=== PATIENT | male | born 1955 | race African-American/Black ===

== ENCOUNTER 2016-12-03 04:40 | Emergency (ER) | payer MEDICAID ==
[~2016-12-03] VITALS: Ht 177.8 cm; Wt 81.6 kg
[~2016-12-03 04:40] MED LIST: ACULAR5 ML LEFT EYE; ADVAIR 100-501 EACH INH; ALBUTEROL SULF8.5 GM INH; ALBUTEROL2.5 MG/3 M HHN; ATROVENT500 MCG/2. HHN; AZITHROMYCIN250 MG ORAL; CYCLOBENZAPRINE10 MG PO; IPRAT-ALBUT 0.5-3 ML IH; ISENTRESS400 MG ORAL; MONTELUKAST SOD10 MG ORAL; MOTRIN800 MG PO; PREDNISONE20 MG ORAL; QUETIAPINE FUMA25 MG PO; QVAR7.3 G2 IH; TRUVADA1 TAB ORAL; WELLBUTRIN75 MG ORAL; ZITHROMAX250 MG ORAL
[2016-12-03] MEDS ORDERED: TRUVADA 200 MG1 EAC1 ORAL (04:48)
[2016-12-03 04:50] VITALS: BP 132/85
[2016-12-03 05:00] VITALS: BP 135/85
--- NOTE | 2016-12-03 05:08 | Emergency Room Report ---
History of Present Illness General Chief Complaint: Back Pain-No Injury Source: Patient Present Illness HPI Is a 61-year-old male with history of scoliosis and chronic lower back pain. He complaining of increasing lower back pain for the last 3 days. He has numbness and burning sensation to the lower back. No radiation. Denies any incontinence of bowel or urine. No trauma. No fever or chills. Movement made it worse. Pain is 10 out of 10. Allergies: Coded Allergies: CODEINE (Verified Allergy, Mild, Altered Mental Status, 03/04/13) Patient History Past Medical History: see triage record, old chart reviewed, other - scoliosis Past Surgical History: other Pertinent Family History: none Social History: Denies: smoking Immunizations: other Reviewed Nursing Documentation: PMH: Agreed, PSxH: Agreed Nursing Documentation-PMH Hx Asthma: Yes Hx COPD: Yes Review of Systems Eye: Denies: blurred vision, eye pain ENT: Denies: ear pain, nose congestion, throat swelling Respiratory: Denies: cough, shortness of breath Cardiovascular: Denies: chest pain, palpitations Gastrointestinal: Denies: abdominal pain, diarrhea, nausea, vomiting Musculoskeletal: Reports: back pain, Denies: joint pain Skin: Denies: rash Neurological: Denies: headache, numbness Endocrine: Denies: increased thirst, increased urine Hematologic/Lymphatic: Denies: easy bruising All Other Systems: negative except mentioned in HPI Physical Exam Vital Signs Date Time Temp Pulse Resp B/P Pulse Ox O2 Delivery O2 Flow Rate FiO2 12/03/16 04:43 97.3 99 18 132/85 95 Room Air vitals normal Sp02 EP Interpretation: reviewed, normal General Appearance: well appearing, alert, mild distress Head: normocephalic, atraumatic Eyes: bilateral eye EOMI, bilateral eye PERRL ENT: hearing grossly normal, normal pharynx Neck: full range of motion, supple, no meningismus Respiratory: chest non-tender, lungs clear, normal breath sounds Cardiovascular #1: regular rate, rhythm, no murmur Gastrointestinal: normal bowel sounds, non tender, no mass, no organomegaly, no bruit, non-distended Musculoskeletal: gait/station normal, normal range of motion, other - Scoliosis. Diffuse lower back tenderness. No step-off. No anesthesia. Neurologic: alert, oriented x3 Psychiatric: mood/affect normal Skin: warm/dry Medical Decision Making Diagnostic Impression: Primary Impression: Back pain Qualified Codes: M54.5 - Low back pain ER Course Patient presents with exacerbation of chronic back pain. No evidence of cauda equina syndrome, spinal after abscess or neoplastic process. He felt better now. We'll discharge home. CT/MRI/US Diagnostic Results CT/MRI/US Diagnostic Results : Imaging Test Ordered: CT L-spine. Impression read by radiologist. No acute process. Last Vital Signs Date Time Temp Pulse Resp B/P Pulse Ox O2 Delivery O2 Flow Rate FiO2 12/03/16 04:50 97.3 99 18 132/85 95 Room Air Status: improved Disposition: HOME, SELF-CARE Condition: Stable Scripts Hydrocodone/Acetaminophen 7.5-325* (HYDROCODON-ACETAMINOPH 7.5-325*) 1 Each Tablet 1 TAB ORAL Q6H Y for For Pain, #20 TAB 0 Refills Prov: FELA LOMELI M.D. 12/03/16 Patient Instructions: Back Pain, Adult Additional Instructions: Followup with your Dr. in 7 days. Return if symptom worsen. FELA LOMELI M.D. Dec 03, 2016 05:08
[2016-12-03] MEDS ORDERED: HYDROmorphone 1mg/ml Carpuject IM ONE (05:15)
[2016-12-03 06:00] VITALS: BP 124/83
[2016-12-03] MEDS ORDERED: HYDROCODON-ACE1 EA16 ORAL (06:15)
[2016-12-03 06:18] VITALS: BP 124/83
--- NOTE | 2016-12-03 09:50 | Diagnostic Imaging Report ---
Indication: Back pain Technique: Continuous helical transaxial imaging of the lumbar spine was obtained from the lung bases to the pubic symphysis. No IV contrast was administered. Coronal 2-D reformats were also obtained. Study obtained in a Siemens sensation [address] Total Dose length Product (DLP): [address] Dose Index Volume (CTDIvol): 17 mGy Comparison: CT abdomen pelvis 04/28/2009 Findings: There is no evidence of an acute fracture or malalignment. There is moderate disc disease at L2-3 characterized by narrowing and vacuum phenomena of the disc, endplate spur formation. Mild to moderate facet hypertrophy and irregularity also demonstrated at this level. There is a scoliosis convex to the left. Tiny punctate constipation noted within the left kidney probably a nonobstructive stone. Arterial vascular calcifications are present. Impression: No acute injury identified. Spondylosis and scoliosis as discussed above Suspected tiny nonobstructive stone in the left kidney. [facility] has communicated the preliminary results to the Emergency Department. Their findings are largely concordant with this report. The CT scanner at [facility] is accredited by the [employer] and the scans are performed using protocols designed to limit radiation exposure to as low as reasonably achievable to attain images of sufficient resolution adequate for diagnostic evaluation.
== END 2016-12-03 06:20 | disposition home or self-care (01) ==
LOC: EMR 05:10
DX: M54.5 Low back pain (principal); G89.29 Other chronic pain; J44.9 Chronic obstructive pulmonary disease, unspecified; J45.909 Unspecified asthma, uncomplicated; M47.816 Spondylosis without myelopathy or radiculopathy, lumbar region; M41.86 Other forms of scoliosis, lumbar region; Z88.6 Allergy status to analgesic agent
CPT/HCPCS: 72131; 96372; 99284; J1170

== ENCOUNTER 2016-12-04 07:38 | Emergency (ER) | payer MEDICAID ==
[~2016-12-04] VITALS: Ht 177.8 cm; Wt 81.6 kg
[~2016-12-04 07:38] MED LIST changes: +HYDROCODON-ACE1 EA16 ORAL; +TRUVADA 200 MG1 EAC1 ORAL
[2016-12-04 07:51] VITALS: BP 128/88
[2016-12-04] MEDS ORDERED: HYDROmorphone 1mg/ml Carpuject IM ONE (08:00)
--- NOTE | 2016-12-04 08:03 | Emergency Room Report ---
History of Present Illness General Chief Complaint: Back Pain-No Injury Source: Patient Present Illness HPI 61 YO M here for 2nd visit in 2 days for "10/10" bilateral lower back pain. Patient demanding dilaudid. States taking Rx [place] he was given here with some improvement. Denies urinary/fecal incontinence, lower extremity weakness, IVDU use, history of cord compression. CT LS spine here 2 days ago showed no acute process. Has + spondylosis, scoliosis, chronic LS degenerative disease. Allergies: Coded Allergies: CODEINE (Verified Allergy, Mild, Altered Mental Status, 03/04/13) Patient History Past Medical History: none Past Surgical History: none Pertinent Family History: none Social History: Denies: alcohol use, drug use, smoking Immunizations: UTD Reviewed Nursing Documentation: PMH: Agreed, PSxH: Agreed Nursing Documentation-PMH Hx Asthma: Yes Hx COPD: Yes Review of Systems All Other Systems: negative except mentioned in HPI Physical Exam Vital Signs Date Time Temp Pulse Resp B/P Pulse Ox O2 Delivery O2 Flow Rate FiO2 12/04/16 07:41 97.2 83 22 128/88 99 Room Air Sp02 EP Interpretation: reviewed, normal General Appearance: normal inspection, well appearing, no apparent distress, alert, GCS 15, non-toxic, other - Writhing on stretcher, moving all extremities , yelling in ORTHO room Head: normocephalic, atraumatic ENT: normal ENT inspection, hearing grossly normal, normal voice Neck: normal inspection, full range of motion, supple, no bony tend Respiratory: normal inspection, lungs clear, normal breath sounds, no respiratory distress, no retraction, no wheezing Cardiovascular #1: regular rate, rhythm, no edema Gastrointestinal: normal inspection, normal bowel sounds, non tender, soft, no guarding, no hernia Genitourinary: no CVA tenderness Musculoskeletal: normal inspection, back normal, normal range of motion, Blake' s Sign negative, other - Negative SL raise test bilaterally. No midline LS spine ttp, mass, abscess. No paravertebral ttp or spasm Neurologic: normal inspection, alert, oriented x3, responsive, electric range assembler III-XII nml as tested, motor strength/tone normal, cerebellar normal, normal gait, speech normal Psychiatric: normal inspection, judgement/insight normal, mood/affect normal Reflexes: 3+ ankle (R), 3+ ankle (L) Skin: normal inspection, normal color, no rash Medical Decision Making Diagnostic Impression: Primary Impression: Back pain Qualified Codes: M54.5 - Low back pain; G89.29 - Other chronic pain Additional Impression: Drug-seeking behavior ER Course 61 YO M with chronic lower back pain. VSS. Afebrile. No sign of epidural abscess on exam. Low suspicion for acute cord compression given absence of focal neuro deficits, weakness or incontinence. Unlikely sciatica given negative straight leg raise test Atraumatic Specific request for dialudid. Improved pain Patient ambulated out of ED Advised pain training development specialist followup Last Vital Signs Date Time Temp Pulse Resp B/P Pulse Ox O2 Delivery O2 Flow Rate FiO2 12/04/16 07:51 97.2 83 22 128/88 99 Room Air Status: improved Disposition: HOME, SELF-CARE Condition: Improved Patient Instructions: Back Pain, Adult Additional Instructions: - Please take your medication you were prescribed here on previous visit - Try applying heat/ice as needed to back to see what works best - Try to stretch/exercise as much as possible - Ask your primary care doctor for a spray painter referral GERTRUDE KOVACS M.D. Dec 04, 2016 08:03
[2016-12-04 08:13] VITALS: BP 144/67
== END 2016-12-04 08:13 | disposition home or self-care (01) ==
LOC: EMR 08:10
DX: M54.5 Low back pain (principal); G89.29 Other chronic pain; Z76.5 Malingerer [conscious simulation]; J44.9 Chronic obstructive pulmonary disease, unspecified; J45.909 Unspecified asthma, uncomplicated; Z88.6 Allergy status to analgesic agent
CPT/HCPCS: 96372; 99283; J1170

== ENCOUNTER 2016-12-16 17:35 | Inpatient (IN) | payer MEDICAID ==
[~2016-12-16] VITALS: Ht 180.3 cm; Wt 81.6 kg
[2016-12-16] MEDS ORDERED: Cefepime HCl 2 GM in D5W 110 ML IVPB ONE (19:00)
[2016-12-16] MEDS ORDERED: Vancomycin 1 GM in NS 275 ML IVPB ONE (19:00)
[2016-12-16 19:07] LABS: MEAN CORPUSCULAR HEMOGLOBIN 33.4 PG (27.0-31.0); MEAN CORPUSCULAR HGB CONC 33.2 G/DL (32.0-36.0); MEAN CORPUSCULAR VOLUME 101 FL (80-99); MEAN PLATELET VOLUME 8.1 FL (6.5-10.1); PLATELET COUNT 195 K/UL (150-450); RED BLOOD COUNT 5.64 M/UL (4.70-6.10); WHITE BLOOD COUNT 12.9 K/UL (4.8-10.8)
[2016-12-16] MEDS ORDERED: Cefepime 2gm ONE (19:16)
[2016-12-16] MEDS ORDERED: Vancomycin 1gm inj IVPB ONE (19:16)
[2016-12-16 19:18] LABS: CALCIUM 8.6 mg/dL (8.6-10.2); CREATININE 2.1 mg/dL (0.7-1.2); GLOMERULAR FILTRATION RATE 38.9 mL/min (>60); POTASSIUM 5.1 mEQ/L (3.4-4.9); TOTAL PROTEIN 7.2 g/dL (6.6-8.7)
[2016-12-16 19:19] LABS: TROPONIN I < 0.30 ng/mL (<=0.30)
[2016-12-16 19:20] LABS: REFLEX LACTIC ACID YES OR NO YES
[2016-12-16] MEDS ORDERED: Azithromycin 500 MG in D5W 275 ML IVPB ONE (19:30)
[2016-12-16 19:43] VITALS: BP 140/91
[2016-12-16] MEDS ORDERED: Azithromycin Inj IV ONE (19:49)
[2016-12-16 20:18] LABS: APPEARANCE,URINE CLEAR; KETONES,URINE NEGATIVE (NEGATIVE); LEUKOCYTE ESTERASE ,URINE 1+ (NEGATIVE); NITRITE,URINE NEGATIVE (NEGATIVE); PH,URINE 5 (4.5-8.0); PROTEIN,URINE 2+ (NEGATIVE); UROBILINOGEN,URINE 1 MG/DL (0.0-1.0)
--- NOTE | 2016-12-16 20:35 | Emergency Room Report ---
History of Present Illness General Chief Complaint: Pain Source: Patient (Ferny Meza M.D.) Present Illness HPI See above history by Jama. I agree, though patient variable historian. (Ferny Meza M.D.) HPI 61-year-old male presents emergency department brought by friend for altered mental status in addition to low back pain. Patient has been complaining of low back pain 8/10 severity times one week and has a history of chronic low back pain. The friend is present at bedside and states that patient is not acting like himself and describes fatigue, slower response and intermittent confusion. Patient reports having cough that is nonproductive and reports history of COPD. Denies requiring oxygen at home. Patient denies fevers or chills. Initially denies constipation or diarrhea, denies admits to constipation diarrhea. Denies blood in the stool or dark tarry stools. Patient states pain in the lumbar area that radiates toward the right side. Denies recent spinal procedures. Denies nausea or vomiting. Patient has a history of HIV. Denies recent fall or trauma. Denies CP, Palpitations, LOC, dizziness, Changes in Vision, Sensation, paresthesias, or a sudden severe headache. (Yue Jama P.A.) Allergies: Coded Allergies: CODEINE (Verified Allergy, Mild, Altered Mental Status, 03/04/13) Patient History Past Medical History: see triage record Social History: Reports: drug use Social History Narrative at home Reviewed Nursing Documentation: PMH: Agreed, PSxH: Agreed (Ferny Meza M.D.) Past Medical History: see triage record, HIV Past Surgical History: none Pertinent Family History: none Immunizations: UTD Reviewed Nursing Documentation: PMH: Agreed, PSxH: Agreed (Yue Jama P.A.) Nursing Documentation-PMH Hx Asthma: Yes Hx COPD: Yes (Ferny Meza M.D.) Review of Systems All Other Systems: negative except mentioned in HPI (Ferny Meza M.D.) All Other Systems: negative except mentioned in HPI (Yue Jama P.A.) Physical Exam Vital Signs Date Time Temp Pulse Resp B/P Pulse Ox O2 Delivery O2 Flow Rate FiO2 12/16/16 17:48 98.1 116 20 117/45 86 Room Air Sp02 EP Interpretation: reviewed, abnormal - interpreted as low by me General Appearance: other - lethargic Head: normocephalic Eyes: bilateral eye PERRL - small, bilateral eye other ENT: dry mucus membranes Neck: full range of motion, supple, no meningismus Respiratory: chest non-tender, no accessory muscle use, crackles, rales, rhonchi Cardiovascular #1: no edema, no murmur, tachycardia Cardiovascular #2: 2+ radial (L) Gastrointestinal: non tender, soft, abnormal bowel sounds - decreased, distended Musculoskeletal: back normal, gait/station normal, normal range of motion Neurologic: oriented x3 - lethargic, motor strength/tone normal, DTRs symmetric , sensory intact, no Babinski, other - slurred speech Psychiatric: depressed affect - lethargic Skin: other - sallo (Ferny Meza M.D.) Sp02 EP Interpretation: reviewed, abnormal - tachycardic General Appearance: no apparent distress, alert, GCS 15, mild distress, lethargic Head: normocephalic, atraumatic Eyes: bilateral eye PERRL - pupils are constricted yet reactive bilat., bilateral eye normal inspection ENT: hearing grossly normal, normal pharynx, no angioedema, normal voice, TMs + canals normal, dry mucus membranes Neck: full range of motion, no meningismus, no bony tend, supple/symm/no masses Respiratory: chest non-tender, lungs clear, normal breath sounds, rales, rhonchi Cardiovascular #1: no edema, tachycardia (Yue Jama P.A.) Procedures Critical Care Time Critical Care Time Total time: 30 min bedside evaluation and treatment excludes procedures (EKG). Reason for critical care: hypoxia, sepsis, altered mentation, immune suppression , severe dehydration, repeated evaluations, discussion with family Possible complications: hypotension, hypertension, OH, shock, arrhythmias, metabolic acidosis, end organ damage, respiratory failure. Interventions: fluid bolus, antibiotics, fever control, IV hydration Course: Patient febrile, low O2 sat and AMS with h/o immune suppression. Clinically septic. Fluid bolus. Repeat evaluations. R infiltrate - antibiotics ordered. (Re-eval of orders for sepsis with discussion.) Discussion of + tox with patient. ABG to determine level of care and if BIPAP needed. Improved with treatment. Discussion with family (excluding + tox). Consultations: nursing staff, EMS, family, admitting MD, RT Performed by: Dr. Meaz Tolerated well condition = serious (Ferny Meza M.D.) Medical Decision Making PA Attestation Dr. Meza is my supervising Physician whom patient management has been discussed with. (Yue Jama) Diagnostic Impression: Primary Impression: Sepsis Qualified Codes: A41.9 - Sepsis, unspecified organism Additional Impressions: RLL pneumonia Qualified Codes: J18.9 - Pneumonia, unspecified organism HIV (human immunodeficiency virus infection) Renal failure Polycythemia Dehydration Polysubstance abuse Rhabdomyolysis Qualified Codes: M62.82 - Rhabdomyolysis ER Course Patient with lethargy, fever and cough. See history by Ms Jama. No evidence of meningitis or cerebritis, though complicated patient needing emergent evaluation. Condition suggests sepsis and bolus will be initiated with antibiotics. Lethargy of concern - consider sepsis, electrolyte abnormality, cryptococcus (doubt), drugs, adverse drug reaction. CXR with R infiltrate. Labs with leukocytosis, polycythemia, renal failure, + tox, elevated CPK. Need for ABG to ascertain level of care and possible need for BIPAP. Based on ABG, OK for continued tx without more aggressive airway management. Also some improvement of mentation. Patient initially with denial of drugs, then states may be some source. Improved with treatment. Contact Dr. Zhong for admission. Laboratory Tests Test 12/16/16 18:15 12/16/16 19:28 12/16/16 19:40 White Blood Count 12.9 K/UL (4.8-10.8) H Red Blood Count 5.64 M/UL (4.70-6.10) Hemoglobin 18.8 G/DL (14.2-18.0) *H Hematocrit 56.6 % (42.0-52.0) H Mean Corpuscular Volume 101 FL (80-99) H Mean Corpuscular Hemoglobin 33.4 PG (27.0-31.0) H Mean Corpuscular Hemoglobin Concent 33.2 G/DL (32.0-36.0) Red Cell Distribution Width 12.0 % (11.6-14.8) Platelet Count 195 K/UL (150-450) Mean Platelet Volume 8.1 FL (6.5-10.1) Neutrophils (%) (Auto) % (45.0-75.0) Lymphocytes (%) (Auto) % (20.0-45.0) Monocytes (%) (Auto) % (1.0-10.0) Eosinophils (%) (Auto) % (0.0-3.0) Basophils (%) (Auto) % (0.0-2.0) Neutrophils % (Manual) Pending Lymphocytes % (Manual) Pending Platelet Estimate Pending Platelet Morphology Pending Sodium Level 133 mEQ/L (135-145) L Potassium Level 5.1 mEQ/L (3.4-4.9) H Chloride Level 89 mEQ/L (98-107) L Carbon Dioxide Level 28 mEQ/L (20-30) Anion Gap 16 (5-15) H Blood Urea Nitrogen 46 mg/dL (7-23) H Creatinine 2.1 mg/dL (0.7-1.2) H Estimate Glomerular Filtration Rate 38.9 mL/min (>60) Glucose Level 145 mg/dL (74-106) H Lactic Acid Level 2.50 mmol/L (0.66-2.22) H 3.00 mmol/L (0.66-2.22) H Calcium Level 8.6 mg/dL (8.6-10.2) Total Bilirubin 0.7 mg/dL (0.0-1.2) Aspartate Amino Transferase (AST) 2174 U/L (5-40) H Alanine Aminotransferase (ALT) 1195 U/L (3-41) H Alkaline Phosphatase 104 U/L (40-129) Total Creatine Kinase 5227 U/L (26-140) H Creatine Kinase MB 210.0 ng/mL (< 6.7) H Creatine Kinase MB Relative Index 4.0 Troponin I < 0.30 ng/mL (<=0.30) Pro-B-Type Natriuretic Peptide 1055 pg/mL (0-125) H Total Protein 7.2 g/dL (6.6-8.7) Albumin 3.6 g/dL (3.5-5.2) Globulin 3.6 g/dL Albumin/Globulin Ratio 1.0 (1.0-2.7) Urine Color Pending Urine Appearance Pending Urine pH Pending Urine Specific [place] Pending Urine Protein Pending Urine Glucose (UA) Pending Urine Ketones Pending Urine Occult Blood Pending Urine Nitrite Pending Urine Bilirubin Pending Urine Urobilinogen Pending Urine Leukocyte Esterase Pending Urine Opiates Screen Pending Urine Barbiturates Screen Pending Phencyclidine (PCP) Screen Pending Urine Amphetamines Screen Pending Urine Benzodiazepines Screen Pending Urine Cocaine Screen Pending Urine Marijuana (THC) Screen Pending (Ferny Meza M.D.) ER Course Pt. presents to the ED c/o low back pain in addition to changes in mental status. Pt. is HIV positive. Ddx considered but are not limited to Sepsis, pneumonia, PE, strep pharyngitis, meningitis, Pneumocystis, COPD exacerbation, OH, CHF Vital signs: Pt. is tachycardic , and has low oxygen saturation in the high 80% on RA, Pt. is Afebrile, the remaining VS are WNL H&PE are most consistent with possible pneumonia will do cxr, due to HIV status and AMS will do full septic work up with early Attending Physician Collaboration. ORDERS: -CBC -CMP -Lactic Acid -Blood Cultures x 2: - Troponin -CK: -CK-MB -Pro-BNP: 1055 -UA -EK Sinus tachycardia , no acute ST elevation- Interpreted By Dr. Meza ED INTERVENTIONS: -2L/min Oxygen Via Nasal Canula - 1000cc NS bolus x 2 --> 30cc/kg Bolus -1 gram Vancomycin IV -2g Cefepime IV - Azithromycin IV DISPOSITION: at this time Dr. Meza has facilitated this patients admission. The pt. will be admitted to Dr. Zhong for Pneumonia, Sepsis, and dehydration with immune compromise. Dr. Zhong has agreed to admit the pt. and to continue pt. care management. Labs Test 12/16/16 18:15 12/16/16 19:28 12/16/16 19:40 12/16/16 21:08 White Blood Count 12.9 K/UL (4.8-10.8) Red Blood Count 5.64 M/UL (4.70-6.10) Hemoglobin 18.8 G/DL (14.2-18.0) Hematocrit 56.6 % (42.0-52.0) Mean Corpuscular Volume 101 FL (80-99) Mean Corpuscular Hemoglobin 33.4 PG (27.0-31.0) Mean Corpuscular Hemoglobin Concent 33.2 G/DL (32.0-36.0) Red Cell Distribution Width 12.0 % (11.6-14.8) Platelet Count 195 K/UL (150-450) Mean Platelet Volume 8.1 FL (6.5-10.1) Neutrophils (%) (Auto) % (45.0-75.0) Lymphocytes (%) (Auto) % (20.0-45.0) Monocytes (%) (Auto) % (1.0-10.0) Eosinophils (%) (Auto) % (0.0-3.0) Basophils (%) (Auto) % (0.0-2.0) Differential Total Cells Counted 100 Neutrophils % (Manual) 68 % (45-75) Lymphocytes % (Manual) 14 % (20-45) Monocytes % (Manual) 5 % (1-10) Eosinophils % (Manual) 1 % (0-3) Basophils % (Manual) 0 % (0-2) Band Neutrophils 12 % (0-8) Platelet Estimate Adequate Platelet Morphology Normal Anisocytosis 1+ Macrocytosis 1+ Sodium Level 133 mEQ/L (135-145) Potassium Level 5.1 mEQ/L (3.4-4.9) Chloride Level 89 mEQ/L (98-107) Carbon Dioxide Level 28 mEQ/L (20-30) Anion Gap 16 (5-15) Blood Urea Nitrogen 46 mg/dL (7-23) Creatinine 2.1 mg/dL (0.7-1.2) Estimat Glomerular Filtration Rate 38.9 mL/min (>60) Glucose Level 145 mg/dL (74-106) Calcium Level 8.6 mg/dL (8.6-10.2) Total Bilirubin 0.7 mg/dL (0.0-1.2) Aspartate Amino Transf (AST/SGOT) 2174 U/L (5-40) Alanine Aminotransferase (ALT/SGPT) 1195 U/L (3-41) Alkaline Phosphatase 104 U/L (40-129) Total Creatine Kinase 5227 U/L (26-140) Creatine Kinase MB 210.0 ng/mL (< 6.7) Creatine Kinase MB Relative Index 4.0 Troponin I < 0.30 ng/mL (<=0.30) Pro-B-Type Natriuretic Peptide 1055 pg/mL (0-125) Total Protein 7.2 g/dL (6.6-8.7) Albumin 3.6 g/dL (3.5-5.2) Globulin 3.6 g/dL Albumin/Globulin Ratio 1.0 (1.0-2.7) Lactic Acid Level 3.00 mmol/L (0.66-2.22) Urine Color Yellow Urine Appearance Clear Urine pH 5 (4.5-8.0) Urine Specific [place] 1.020 (1.005-1.035) Urine Protein 2+ (NEGATIVE) Urine Glucose (UA) Negative (NEGATIVE) Urine Ketones Negative (NEGATIVE) Urine Occult Blood 5+ (NEGATIVE) Urine Nitrite Negative (NEGATIVE) Urine Bilirubin Negative (NEGATIVE) Urine Urobilinogen 1 MG/DL (0.0-1.0) Urine Leukocyte Esterase 1+ (NEGATIVE) Urine RBC 10-15 /HPF (0 - 0) Urine WBC 2-4 /HPF (0 - 0) Urine Squamous Epithelial Cells None /LPF (NONE/OCC) Urine Amorphous Sediment Moderate /LPF (NONE) Urine Bacteria Few /HPF (NONE) Urine Opiates Screen Positive (NEGATIVE) Urine Barbiturates Screen Negative (NEGATIVE) Phencyclidine (PCP) Screen Negative (NEGATIVE) Urine Amphetamines Screen Positive (NEGATIVE) Urine Benzodiazepines Screen Positive (NEGATIVE) Urine Cocaine Screen Negative (NEGATIVE) Urine Marijuana (THC) Screen Positive (NEGATIVE) Arterial Blood pH 7.369 (7.350-7.450) Arterial Blood Partial Pressure CO2 47.1 mmHg (35.0-45.0) Arterial Blood Partial Pressure O2 66.2 mmHg (75.0-100.0) Arterial Blood HCO3 26.6 mmol/L (22.0-26.0) Arterial Blood Oxygen Saturation 92.0 % (92.0-98.0) Arterial Blood Base Excess 0.6 Yves Test Positive (Yue Jama P.A.) EKG Diagnostic Results Rate: tachycardiac ST Segments: no acute changes (Ferny Meza M.D.) Rate: tachycardiac - 114bpm Rhythm: NSR ST Segments: no acute changes ASA given to the pt in ED: No PA Scribe Text interpreted by Dr. Meza (Yue Jama P.A.) Rhythm Strip Diag. Results EP Interpretation: yes Rhythm: no PVC's, no ectopy, other - ST (Ferny Meza M.D.) Chest X-Ray Diagnostic Results EP Interpretation: Yes Findings: no effusion, no pneumothorax, other - RLL infiltrate Number of Views: 1 (Ferny Meza M.D.) EP Interpretation: Yes - By Dr. Meza Findings: no consolidation, no pneumothorax, other - RLL patchy infiltrate Number of Views: 1 PA Scribe Text "Patchy infiltrated noted in the Right Lower lobe" - interpreted by Dr. Meza (Yue Jama P.ASanford) Status: improved (Ferny Meza M.D.) Status: improved - O2 saturation has improved with supplemental oxygen via Nasal Canula (Yue Jama P.AS[place]) Disposition: ADMITTED INPATIENT Condition: Serious Referrals: [facility],REFERR[facility] (PCP) Ferny Meza M.D. Dec 16, 2016 20:35 Yue Jama Dec 16, 2016 23:37
[2016-12-16 20:54] LABS: AMORPHOUS SEDIMENT,UR MODERATE /LPF; BACTERIA,URINE FEW /HPF
[2016-12-16 21:30] LABS: ABG PCO2 47.1 mmHg (35.0-45.0)
[2016-12-16 21:31] LABS: ABG ALLEN TEST POSITIVE; ABG BASE EXCESS 0.6
[2016-12-16] MEDS ORDERED: Nitroglycerin Subl 0.4mg tab (Bottle Of 25) SL PRN (22:00)
[2016-12-16] MEDS ORDERED: DuoNeb 0.5-3(2.5)mg/3ml neb HHN PRN (22:00)
[2016-12-16] MEDS ORDERED: Mylanta II UD 30ml ORAL PRN (22:00)
[2016-12-16] MEDS ORDERED: Miralax 17gm pkt ORAL PRN (22:00)
[2016-12-16] MEDS ORDERED: Promethazine/Codeine 5ml UD ORAL PRN (22:00)
[2016-12-16 22:08] LABS: BAND NEUTROPHILS % (MANUAL) 12 % (0-8); EOSINOPHILS % (MANUAL) 1 % (0-3); LYMPHOCYTES % (MANUAL) 14 % (20-45); NEUTROPHILS % (MANUAL) 68 % (45-75); TOTAL CELLS COUNTED 100
[2016-12-16 22:09] LABS: ANISOCYTOSIS 1+; BASOPHILS % (MANUAL) 0 % (0-2); MACROCYTES 1+; PLATELET ESTIMATE ADEQUATE; PLATELET MORPHOLOGY NORMAL
[2016-12-16 22:15] VITALS: BP 129/97
[2016-12-17 04:00] VITALS: BP 108/71
[2016-12-17 04:42] LABS: BASOPHILS % (AUTO) 0.4 % (0.0-2.0); EOSINOPHILS % (AUTO) 0.3 % (0.0-3.0); LYMPHOCYTES % (AUTO) 15.9 % (20.0-45.0); MEAN CORPUSCULAR HEMOGLOBIN 34.1 PG (27.0-31.0); MEAN CORPUSCULAR HGB CONC 34.2 G/DL (32.0-36.0); MEAN CORPUSCULAR VOLUME 100 FL (80-99); MONOCYTES % (AUTO) 3.9 % (1.0-10.0); NEUTROPHILS % (AUTO) 79.5 % (45.0-75.0); PLATELET COUNT 176 K/UL (150-450); RED BLOOD COUNT 4.18 M/UL (4.70-6.10); RED CELL DISTRIBUTION WIDTH 11.6 % (11.6-14.8); WHITE BLOOD COUNT 9.8 K/UL (4.8-10.8)
[2016-12-17 05:11] LABS: ANION GAP 9 (5-15); CARBON DIOXIDE 28 mEQ/L (20-30); CHLORIDE 101 mEQ/L (98-107); CREATININE 1.3 mg/dL (0.7-1.2); GLOMERULAR FILTRATION RATE > 60 mL/min (>60); SODIUM 138 mEQ/L (135-145)
[2016-12-17 05:12] LABS: CALCIUM 7.6 mg/dL (8.6-10.2); HEMOLYSIS 4; PHOSPHORUS 1.6 mg/dL (2.5-4.8)
[2016-12-17 08:00] VITALS: BP 128/71
[2016-12-17] MEDS: Heparin 5000 units/ml inj SUBQ SCH ×2 (08:48→21:00)
--- NOTE | 2016-12-17 10:23 | History and Physical ---
History of Present Illness General Date patient seen: Dec 17, 2016 Reason for Hospitalization: Pain Present Illness HPI 61-year-old male with hx of HIV, chronic back pain, presented emergency department brought by friend for altered mental status in addition to low back pain. Patient reports having cough that is nonproductive and reports history of COPD. Patient states pain in the lumbar area that radiates toward the right side. Denies recent spinal procedures. Denies nausea or vomiting. Patient has a history of HIV. Allergies: Coded Allergies: CODEINE (Verified Allergy, Mild, Altered Mental Status, 03/04/13) Medication History Scheduled Emtricitabine/Tenofovir 200-300MG* (Truvada 200-300MG*), 1 TAB ORAL DAILY, ( Reported) Fluticasone/Salmeterol (Advair 100-50 Diskus), 1 PUFF INH EVERY 12 HOURS, ( Reported) Ibuprofen* (Motrin*), 800 MG PO NEEDED, (Reported) Montelukast Sodium* (Montelukast Sodium*), 10 MG ORAL DAILY, (Reported) Quetiapine Fumarate* (Seroquel*), 25 MG PO DAILY, (Reported) Raltegravir (Isentress), 400 MG ORAL EVERY 12 HOURS, (Reported) Patient History Healthcare decision maker Resuscitation status Full Code Advanced Directive on File No Past Medical/Surgical History Past Medical/Surgical History: (1) HIV (human immunodeficiency virus infection) (2) Back pain Review of Systems All Other Systems: negative except mentioned in HPI Physical Exam General Appearance: WD/WN Lines, tubes and drains: peripheral, central line HEENT: normocephalic Neck: non-tender, normal alignment Respiratory/Chest: chest wall non-tender, lungs clear Cardiovascular/Chest: normal peripheral pulses, normal rate Abdomen: normal bowel sounds Genitourinary/Rectal: normal genital exam Extremities: normal range of motion Last 24 Hour Vital Signs Date Time Temp Pulse Resp B/P Pulse Ox O2 Delivery O2 Flow Rate FiO2 12/17/16 08:00 97.3 106 20 128/71 100 Nasal Cannula 2.0 12/17/16 04:00 97.5 99 20 108/71 98 Nasal Cannula 12/17/16 03:58 99 12/16/16 23:26 97.8 105 19 136/62 97 Nasal Cannula 2.0 12/16/16 22:15 97.8 101 20 129/97 97 Nasal Cannula 2.0 12/16/16 19:43 97.8 105 20 140/91 95 Nasal Cannula 2.0 12/16/16 17:48 98.1 116 20 117/45 86 Room Air Intake and Output 12/16/16 12/17/16 19:00 07:00 Intake Total 8220 ml Output Total 2900 ml Balance 5320 ml Intake Oral 100 ml IV Total 4060 ml Other 4060 ml Output Urine Total 2900 ml Laboratory Tests Test 12/16/16 18:15 12/16/16 19:28 12/16/16 19:40 12/16/16 21:08 White Blood Count 12.9 K/UL (4.8-10.8) H Red Blood Count 5.64 M/UL (4.70-6.10) Hemoglobin 18.8 G/DL (14.2-18.0) *H Hematocrit 56.6 % (42.0-52.0) H Mean Corpuscular Volume 101 FL (80-99) H Mean Corpuscular Hemoglobin 33.4 PG (27.0-31.0) H Mean Corpuscular Hemoglobin Concent 33.2 G/DL (32.0-36.0) Red Cell Distribution Width 12.0 % (11.6-14.8) Platelet Count 195 K/UL (150-450) Mean Platelet Volume 8.1 FL (6.5-10.1) Neutrophils (%) (Auto) % (45.0-75.0) Lymphocytes (%) (Auto) % (20.0-45.0) Monocytes (%) (Auto) % (1.0-10.0) Eosinophils (%) (Auto) % (0.0-3.0) Basophils (%) (Auto) % (0.0-2.0) Differential Total Cells Counted 100 Neutrophils % (Manual) 68 % (45-75) Lymphocytes % (Manual) 14 % (20-45) L Monocytes % (Manual) 5 % (1-10) Eosinophils % (Manual) 1 % (0-3) Basophils % (Manual) 0 % (0-2) Band Neutrophils 12 % (0-8) H Platelet Estimate Adequate Platelet Morphology Normal Anisocytosis 1+ Macrocytosis 1+ Sodium Level 133 mEQ/L (135-145) L Potassium Level 5.1 mEQ/L (3.4-4.9) H Chloride Level 89 mEQ/L (98-107) L Carbon Dioxide Level 28 mEQ/L (20-30) Anion Gap 16 (5-15) H Blood Urea Nitrogen 46 mg/dL (7-23) H Creatinine 2.1 mg/dL (0.7-1.2) H Estimat Glomerular Filtration Rate 38.9 mL/min (>60) Glucose Level 145 mg/dL (74-106) H Lactic Acid Level 2.50 mmol/L (0.66-2.22) H 3.00 mmol/L (0.66-2.22) H Calcium Level 8.6 mg/dL (8.6-10.2) Total Bilirubin 0.7 mg/dL (0.0-1.2) Aspartate Amino Transf (AST/SGOT) 2174 U/L (5-40) H Alanine Aminotransferase (ALT/SGPT) 1195 U/L (3-41) H Alkaline Phosphatase 104 U/L (40-129) Total Creatine Kinase 5227 U/L (26-140) H Creatine Kinase MB 210.0 ng/mL (< 6.7) H Creatine Kinase MB Relative Index 4.0 Troponin I < 0.30 ng/mL (<=0.30) Pro-B-Type Natriuretic Peptide 1055 pg/mL (0-125) H Total Protein 7.2 g/dL (6.6-8.7) Albumin 3.6 g/dL (3.5-5.2) Globulin 3.6 g/dL Albumin/Globulin Ratio 1.0 (1.0-2.7) Urine Color Yellow Urine Appearance Clear Urine pH 5 (4.5-8.0) Urine Specific [place] 1.020 (1.005-1.035) Urine Protein 2+ (NEGATIVE) H Urine Glucose (UA) Negative (NEGATIVE) Urine Ketones Negative (NEGATIVE) Urine Occult Blood 5+ (NEGATIVE) H Urine Nitrite Negative (NEGATIVE) Urine Bilirubin Negative (NEGATIVE) Urine Urobilinogen 1 MG/DL (0.0-1.0) H Urine Leukocyte Esterase 1+ (NEGATIVE) H Urine RBC 10-15 /HPF (0 - 0) H Urine WBC 2-4 /HPF (0 - 0) Urine Squamous Epithelial Cells None /LPF (NONE/OCC) Urine Amorphous Sediment Moderate /LPF (NONE) H Urine Bacteria Few /HPF (NONE) Urine Opiates Screen Positive (NEGATIVE) H Urine Barbiturates Screen Negative (NEGATIVE) Phencyclidine (PCP) Screen Negative (NEGATIVE) Urine Amphetamines Screen Positive (NEGATIVE) H Urine Benzodiazepines Screen Positive (NEGATIVE) H Urine Cocaine Screen Negative (NEGATIVE) Urine Marijuana (THC) Screen Positive (NEGATIVE) H Arterial Blood pH 7.369 (7.350-7.450) Arterial Blood Partial Pressure CO2 47.1 mmHg (35.0-45.0) H Arterial Blood Partial Pressure O2 66.2 mmHg (75.0-100.0) L Arterial Blood HCO3 26.6 mmol/L (22.0-26.0) H Arterial Blood Oxygen Saturation 92.0 % (92.0-98.0) Arterial Blood Base Excess 0.6 Yves Test Positive Test 12/17/16 04:00 12/17/16 05:30 White Blood Count 9.8 K/UL (4.8-10.8) Red Blood Count 4.18 M/UL (4.70-6.10) L Hemoglobin 14.2 G/DL (14.2-18.0) Hematocrit 41.7 % (42.0-52.0) L Mean Corpuscular Volume 100 FL (80-99) H Mean Corpuscular Hemoglobin 34.1 PG (27.0-31.0) H Mean Corpuscular Hemoglobin Concent 34.2 G/DL (32.0-36.0) Red Cell Distribution Width 11.6 % (11.6-14.8) Platelet Count 176 K/UL (150-450) Mean Platelet Volume 9.0 FL (6.5-10.1) Neutrophils (%) (Auto) 79.5 % (45.0-75.0) H Lymphocytes (%) (Auto) 15.9 % (20.0-45.0) L Monocytes (%) (Auto) 3.9 % (1.0-10.0) Eosinophils (%) (Auto) 0.3 % (0.0-3.0) Basophils (%) (Auto) 0.4 % (0.0-2.0) Sodium Level 138 mEQ/L (135-145) Potassium Level 5.0 mEQ/L (3.4-4.9) H Chloride Level 101 mEQ/L (98-107) Carbon Dioxide Level 28 mEQ/L (20-30) Anion Gap 9 (5-15) Blood Urea Nitrogen 35 mg/dL (7-23) H Creatinine 1.3 mg/dL (0.7-1.2) H Estimat Glomerular Filtration Rate > 60 mL/min (>60) Glucose Level 108 mg/dL (74-106) H Calcium Level 7.6 mg/dL (8.6-10.2) L Phosphorus Level 1.6 mg/dL (2.5-4.8) L Albumin 2.6 g/dL (3.5-5.2) L Urine Legionella Antigen Pending Height (Feet): 5 Height (Inches): 11.00 Weight (Pounds): 180 Medications Current Medications Medications (Trade) Dose Ordered Sig/Abena Route PRN Reason Start Time Stop Time Status Last Admin Dose Admin Acetaminophen (Tylenol) 650 mg Q4H PRN ORAL fever 12/16/16 22:00 01/15/17 21:59 12/17/16 00:37 Al Hydroxide/Mg Hydroxide (Mylanta II) 30 ml Q6H PRN ORAL dyspepsia 12/16/16 22:00 01/15/17 21:59 Albuterol/ Ipratropium 3 ml 3 ml Q4H PRN HHN Shortness of Breath 12/16/16 22:00 12/21/16 21:59 Cefepime HCl/ Dextrose (Maxipime/D5W) 55 ml @ 110 mls/hr Q24H IV 12/17/16 18:00 12/24/16 17:59 Emtricitabine/ Tenofovir (Truvada) 1 tab DAILY ORAL 12/17/16 09:00 01/16/17 08:59 UNV Heparin Sodium (Porcine) (Heparin 5000 units/ml) 5,000 units EVERY 12 HOURS SUBQ 12/17/16 09:00 01/16/17 08:59 12/17/16 08:48 Nitroglycerin (Ntg) 0.4 mg Q5M PRN SL Prn Chest Pain 12/16/16 22:00 01/15/17 21:59 Ondansetron HCl (Zofran) 4 mg Q6H PRN IVP Nausea & Vomiting 12/16/16 22:00 01/15/17 21:59 Polyethylene Glycol (Miralax) 17 gm DAILYPRN PRN ORAL Constipation 12/16/16 22:00 01/15/17 21:59 Quetiapine Fumarate (SEROquel) 25 mg DAILY ORAL 12/17/16 09:00 01/16/17 08:59 12/17/16 08:46 Raltegravir (Isentress) 400 mg EVERY 12 HOURS ORAL 12/17/16 09:00 01/16/17 08:59 UNV Temazepam (Restoril) 15 mg HSPRN PRN ORAL Insomnia 12/16/16 22:00 12/23/16 21:59 Assessment/Plan Problem List: (1) RLL pneumonia ICD Codes: J18.9 - Pneumonia, unspecified organism SNOMED: 165647278 Qualifiers: Qualified Codes: J18.9 - Pneumonia, unspecified organism (2) Acute exacerbation of chronic obstructive airways disease (3) Acute encephalopathy ICD Codes: G93.40 - Encephalopathy, unspecified SNOMED: 5834290 (4) HIV (human immunodeficiency virus infection) ICD Codes: Z21 - Asymptomatic human immunodeficiency virus [HIV] infection status SNOMED: 36774408 (5) Back pain ICD Codes: M54.9 - Dorsalgia, unspecified SNOMED: 600470302 Assessment/Plan IV antibiotics aspiration precaution check sputum pain consult neuro to see OLAYINKA TREVINO Dec 17, 2016 10:23
[2016-12-17 12:08] VITALS: BP 124/77
--- NOTE | 2016-12-17 12:14 | Consultation ---
Consult Note Consult Note ID Dic # [id number] SHAMEKA CAMPOS M.D. Dec 17, 2016 12:14
--- NOTE | 2016-12-17 12:23 | Diagnostic Imaging Report ---
Indication: Cough Comparison: None A single view chest radiograph was obtained. Findings: There is an infiltrate in the right central lung suspicious for pneumonia. Pulmonary vascularity is mildly prominent. Heart size is normal. There is a scoliosis convex to the right. Impression: Suspected pneumonia right perihilar region
[2016-12-17] MEDS: cefTRIAXone 2gm/D5W 110ml IVPB SCH ×2 (15:09)
--- NOTE | 2016-12-17 15:34 | Diagnostic Imaging Report ---
Indication: Altered mental status Technique: The head was imaged in a 1.5 Mireya magnet. Sequences obtained include sagittal and axial T1 FLAIR, axial T2 fast spin echo with fat saturation, axial T2 FLAIR, diffusion and ADC map. Gadolinium-enhanced axial and coronal T1 FLAIR obtained also. Comparison: None Findings: Mild, nonspecific T2 hyperintensity noted within white matter. This may be due to chronic small vessel disease. No abnormal enhancement is identified. There is no restricted diffusion. Barth-white differentiation is normal. There is no mass effect, midline shift, edema, or hemorrhage. There are no abnormal extra-axial or intra-axial fluid collections. The corpus callosum and sella are unremarkable. The brainstem and cerebellum are unremarkable. Bone marrow signal within the visualized osseous structures appears age appropriate and unremarkable otherwise. Impression: No acute intracranial findings. Mild, nonspecific T2 hyperintense signal involving white matter tracts probably on the basis of chronic small vessel disease.
[2016-12-17 16:00] VITALS: BP 140/91
[2016-12-17] MEDS ORDERED: Vancomycin 1gm/D5W 275ml IVPB ONE ×2 (16:00)
[2016-12-17] MEDS: Morphine Sulfate 2mg/ml Inj IVP PRN (17:43)
[2016-12-17] MEDS ORDERED: Cefepime HCl 1 GM in D5W 55 ML IV SCH (18:00)
[2016-12-17] MEDS: AMPICILLIN IV SCH ×4 (18:48→21:54)
[2016-12-17] MEDS: [UNRECOGNIZED DRUG - OTHER] IV SCH ×4 (18:48→21:54)
[2016-12-17 20:00] VITALS: BP 151/99
--- NOTE | 2016-12-17 20:38 | Consultation ---
DATE OF CONSULTATION: INFECTIOUS DISEASES CONSULTATION CONSULTING PHYSICIAN: Elías Zhang M.D. REFERRING PHYSICIAN: Michelle Zhong M.D. REASON FOR CONSULTATION: Evaluation of the patient for altered level of consciousness, possible pneumonia, antibiotic management. HISTORY OF PRESENT ILLNESS: The patient is a 61-year-old male who came to the hospital with altered level of consciousness. Unfortunately, we do not have much information about the patient, including his diagnosis of HIV. I asked the nurse to contact if he has close family member available to give further information and get records from the patient's HIV provider. At this time, the patient is confused and the patient has been admitted for further workup. Laboratories have shown evidence of lactic acidosis. Chest x-ray is pending. Cultures are pending. PAST MEDICAL HISTORY: 1. Limited. Much of the information I was able to gather as mentioned above. Also, the patient has history of COPD. 2. Asthma. 3. HIV (unknown what is his HIV status ). MEDICATIONS: The patient is taking Raltegravir and Truvada as an outpatient and here the patient has been started on IV cefepime. FAMILY HISTORY: Not available. REVIEW OF SYSTEMS: Unobtainable. The patient denies having headaches although the patient again is confused. PHYSICAL EXAMINATION: VITAL SIGNS: Temperature 97.2 degrees, blood pressure 128/71, pulse 86, respiratory rate 18. HEENT: Mild pale conjunctivae. No icterus. NECK: No lymphadenopathy. CHEST: Coarse breathing sounds. HEART: S1 and S2. ABDOMEN: Soft. EXTREMITIES: No cyanosis at this time. NEUROLOGIC: Confused. The patient is arousable. LABORATORY AND DIAGNOSTIC DATA: White cell count 9.8, hemoglobin 14, platelet 176,000. UA 2 to 4 red blood cells. BUN 35, creatinine 1.3. AST 2174, ALT 1195, alkaline phosphatase of 104. Total CK 227. Urine toxicology positive for opiates, crystal, benzodiazepines, and marijuana. ASSESSMENT: The patient is a 61-year-old male with multiple medical problems who has been admitted to this medical center with altered level of consciousness, possibly due to drug overdose. However in view of the patient having human immunodeficiency virus it is important to consider possible opportunistic infection, meningitis till we get further from information from cultures and workups. PLAN: 1. We will start patient on intravenous acyclovir, Rocephin, vancomycin, and ampicillin. 2. We will put the patient on droplet isolation. 3. We will order an MRI of the brain. 4. We will check CD4 count and human immunodeficiency virus viral load. 5. serology. 6. Monitor cultures(blood, sputum, and urine). 7. We will obtain a chest x-ray. Based on the patient's clinical course and labs, we will do further recommendation. Thank you, Dr. Zhong for allowing me to participate in the care of this patient. I will follow the patient with you during this hospitalization. Elías Zhang M.D. DR: Yahaira JOB#: [id number] CC:
[2016-12-17] MEDS: D5W IV SCH (21:54)
[2016-12-17] MEDS: ACYCLOVIR IV SCH (21:54)
[2016-12-18] VITALS: BP 114/65
[2016-12-18] MEDS: [UNRECOGNIZED DRUG - OTHER] IV SCH ×12 (00:43→20:42)
[2016-12-18] MEDS: AMPICILLIN IV SCH ×12 (00:43→20:42)
[2016-12-18] MEDS: cefTRIAXone 2gm/D5W 110ml IVPB SCH ×4 (01:34→14:21)
[2016-12-18] MEDS: Morphine Sulfate 2mg/ml Inj IVP PRN ×3 (02:38→22:34)
[2016-12-18 04:00] VITALS: BP 119/84
[2016-12-18] MEDS: Vancomycin 750mg/D5W 275ml IVPB SCH ×4 (04:06→16:37)
[2016-12-18] MEDS: ACYCLOVIR IV SCH ×3 (05:46→22:34)
[2016-12-18] MEDS: D5W IV SCH ×3 (05:46→22:34)
[2016-12-18 06:53] LABS: BASOPHILS % (AUTO) 0.5 % (0.0-2.0); EOSINOPHILS % (AUTO) 0.8 % (0.0-3.0); LYMPHOCYTES % (AUTO) 18.6 % (20.0-45.0); MEAN CORPUSCULAR HGB CONC 33.1 G/DL (32.0-36.0); MEAN CORPUSCULAR VOLUME 100 FL (80-99); MEAN PLATELET VOLUME 8.5 FL (6.5-10.1); MONOCYTES % (AUTO) 6.1 % (1.0-10.0); NEUTROPHILS % (AUTO) 74.1 % (45.0-75.0); PLATELET COUNT 171 K/UL (150-450); RED BLOOD COUNT 3.85 M/UL (4.70-6.10); RED CELL DISTRIBUTION WIDTH 12.2 % (11.6-14.8); WHITE BLOOD COUNT 9.3 K/UL (4.8-10.8)
[2016-12-18 07:13] LABS: ALANINE AMINOTRANSFERASE 664 U/L (3-41); ANION GAP 10 (5-15); ASPARTATE AMINO TRANSFERASE 690 U/L (5-40); CALCIUM 7.6 mg/dL (8.6-10.2); CARBON DIOXIDE 29 mEQ/L (20-30); CHLORIDE 101 mEQ/L (98-107); CREATININE 1.2 mg/dL (0.7-1.2); GLOMERULAR FILTRATION RATE > 60 mL/min (>60); HEMOLYSIS 3; MAGNESIUM 2.1 mg/dL (1.7-2.5); PHOSPHORUS 1.7 mg/dL (2.5-4.8); POTASSIUM 3.7 mEQ/L (3.4-4.9); SODIUM 140 mEQ/L (135-145); TOTAL PROTEIN 5.3 g/dL (6.6-8.7)
[2016-12-18 08:11] VITALS: BP 130/78
[2016-12-18] MEDS: Isentress 400mg tab ORAL SCH ×3 (09:00→21:00)
[2016-12-18] MEDS: Heparin 5000 units/ml inj SUBQ SCH ×2 (09:32→20:43)
[2016-12-18 12:17] VITALS: BP 133/79
[2016-12-18] MEDS ORDERED: Tubing IV Secondary IV ONE (13:05)
[2016-12-18] MEDS ORDERED: NS 275ml ONE ×2 (13:05→14:18)
[2016-12-18 16:00] VITALS: BP 123/85
[2016-12-18] MEDS: Emitricitabine/Tenofovir 200/300mg tab ORAL SCH (18:12)
[2016-12-18 19:57] VITALS: BP 126/79
[2016-12-18 21:28] LABS: CD3 ABSOLUTE 1395 /uL (622-2402); CD4 ABSOLUTE 409 /uL (359-1519); CD8 ABSOLUTE 1033 /uL (109-897); LYMPHOCYTES ABSOLUTE 1.8 x10E3/uL (0.7-3.1); LYMPHS 18 % (.); NRBC 0 % (0 - 0); WBC 9.9 x10E3/uL (3.4-10.8)
--- NOTE | 2016-12-18 21:35 | Pulmonology Progress Note ---
Assessment/Plan Problems: (1) RLL pneumonia (2) Acute exacerbation of chronic obstructive airways disease (3) Acute encephalopathy (4) HIV (human immunodeficiency virus infection) (5) Back pain Assessment/Plan mental status has not improved much continue antibiotics pain control check cultures supplement electrolytes. Subjective ROS Limited/Unobtainable: No Constitutional: Reports: no symptoms HEENT: Repors: no symptoms Allergies: Coded Allergies: CODEINE (Verified Allergy, Mild, Altered Mental Status, 03/04/13) Objective Last 24 Hour Vital Signs Date Time Temp Pulse Resp B/P Pulse Ox O2 Delivery O2 Flow Rate FiO2 12/18/16 19:57 98.3 103 20 126/79 97 Room Air 12/18/16 16:00 98.7 107 18 123/85 94 Room Air 12/18/16 12:17 97.0 103 20 133/79 97 Nasal Cannula 2.0 12/18/16 08:11 97.7 105 19 130/78 97 Nasal Cannula 2.0 12/18/16 04:00 98.9 103 20 119/84 97 Room Air 12/18/16 03:13 98.7 12/18/16 00:00 98.7 115 20 114/65 96 Room Air Intake and Output 12/17/16 12/18/16 19:00 07:00 Intake Total 903.708 ml 2595 ml Output Total 3900 ml Balance 903.708 ml -1305 ml Intake Oral 300 ml 1350 ml IV Total 603.708 ml 1245 ml Output Urine Total 3900 ml # Voids 2 General Appearance: WD/WN HEENT: normocephalic Respiratory/Chest: chest wall non-tender, lungs clear Cardiovascular: normal peripheral pulses, normal rate Extremities: no cyanosis Neurologic/Psychiatric: internal controls specialist II-XII grossly normal Microbiology Date/Time Source Procedure Growth Status 12/16/16 18:30 Blood Blood Culture - Preliminary NO GROWTH AFTER 24 HOURS Resulted 12/16/16 18:15 Blood Blood Culture - Preliminary NO GROWTH AFTER 24 HOURS Resulted 12/17/16 06:30 Sputum Gram Stain - Final Resulted 12/17/16 06:30 Sputum Sputum Culture Pending Resulted Laboratory Tests 12/18/16 05:20: White Blood Count 9.3, Red Blood Count 3.85L, Hemoglobin 12.7L, Hematocrit 38.4L , Mean Corpuscular Volume 100H, Mean Corpuscular Hemoglobin 33.0H, Mean Corpuscular Hemoglobin Concent 33.1, Red Cell Distribution Width 12.2, Platelet Count 171, Mean Platelet Volume 8.5, Neutrophils (%) (Auto) 74.1, Lymphocytes (% ) (Auto) 18.6L, Monocytes (%) (Auto) 6.1, Eosinophils (%) (Auto) 0.8, Basophils (%) (Auto) 0.5, Sodium Level 140, Potassium Level 3.7, Chloride Level 101, Carbon Dioxide Level 29, Anion Gap 10, Blood Urea Nitrogen 16, Creatinine 1.2, Estimat Glomerular Filtration Rate > 60, Glucose Level 150H, Calcium Level 7.6L , Phosphorus Level 1.7L, Magnesium Level 2.1, Total Bilirubin 0.3, Aspartate Amino Transf (AST/SGOT) 690H, Alanine Aminotransferase (ALT/SGPT) 664H, Alkaline Phosphatase 101, Total Protein 5.3L, Albumin 2.7L, Globulin 2.6, Albumin/Globulin Ratio 1.0 Current Medications Medications (Trade) Dose Ordered Sig/Abena Route PRN Reason Start Time Stop Time Status Last Admin Dose Admin Acetaminophen (Tylenol) 650 mg Q4H PRN ORAL fever 12/16/16 22:00 01/15/17 21:59 12/17/16 00:37 Acyclovir/Dextrose (Zovirax/D5W) 275 ml @ 275 mls/hr EVERY 8 HOURS IV 12/18/16 22:00 01/17/17 21:59 Al Hydroxide/Mg Hydroxide (Mylanta II) 30 ml Q6H PRN ORAL dyspepsia 12/16/16 22:00 01/15/17 21:59 Albuterol/ Ipratropium (DuoNeb 0.5-3(2.5)mg/3ml) 3 ml Q4H PRN HHN Shortness of Breath 12/16/16 22:00 12/21/16 21:59 Ampicillin/Sodium Chloride (Ampicillin/ Sodium Chloride) 110 ml @ 220 mls/hr Q4HR IV 12/17/16 17:00 12/24/16 16:59 12/18/16 20:42 Ceftriaxone Sodium 2 gm/ Dextrose 110 ml @ 220 mls/hr Q12H IVPB 12/17/16 14:00 12/24/16 13:59 12/18/16 14:21 Emtricitabine/ Tenofovir (Truvada) 1 tab DAILY ORAL 12/18/16 18:00 01/17/17 17:59 12/18/16 18:12 Fluconazole/ Sodium Chloride 200 ml @ 200 mls/hr Q24H IV 12/17/16 15:00 12/24/16 14:59 12/18/16 14:21 Fluconazole/ Sodium Chloride 200 ml @ 200 mls/hr Q24H IV 12/17/16 16:00 12/24/16 15:59 12/18/16 16:37 Heparin Sodium (Porcine) (Heparin 5000 units/ml) 5,000 units EVERY 12 HOURS SUBQ 12/17/16 09:00 01/16/17 08:59 12/18/16 20:43 Morphine Sulfate 2 mg 2 mg Q4H PRN IVP PAIN 4-10 12/17/16 16:45 12/24/16 16:44 12/18/16 18:29 Nitroglycerin 0.4 mg 0.4 mg Q5M PRN SL Prn Chest Pain 12/16/16 22:00 01/15/17 21:59 Ondansetron HCl (Zofran) 4 mg Q6H PRN IVP Nausea & Vomiting 12/16/16 22:00 01/15/17 21:59 Polyethylene Glycol (Miralax) 17 gm DAILYPRN PRN ORAL Constipation 12/16/16 22:00 01/15/17 21:59 Quetiapine Fumarate (SEROquel) 25 mg DAILY ORAL 12/17/16 09:00 01/16/17 08:59 12/18/16 09:31 Raltegravir (Isentress) 400 mg EVERY 12 HOURS ORAL 12/17/16 18:00 01/16/17 17:59 12/18/16 18:12 Temazepam (Restoril) 15 mg HSPRN PRN ORAL Insomnia 12/16/16 22:00 12/23/16 21:59 12/18/16 00:42 Vancomycin HCl 1 ea 1 ea DAILY PRN MISC PER RX PROTOCOL 12/17/16 14:45 01/16/17 14:44 Vancomycin HCl/ Dextrose (Vancomycin/D5W) 275 ml @ 183.708 mls/hr Q12HR@0400,1600 IVPB 12/18/16 04:00 12/23/16 03:59 12/18/16 16:37 OLAYINKA TREVINO Dec 18, 2016 21:35
[2016-12-19] VITALS: BP 142/88
[2016-12-19] MEDS: [UNRECOGNIZED DRUG - OTHER] IV SCH ×8 (00:44→12:34)
[2016-12-19] MEDS: AMPICILLIN IV SCH ×10 (00:44→21:33)
[2016-12-19] MEDS: cefTRIAXone 2gm/D5W 110ml IVPB SCH ×4 (02:00→13:59)
[2016-12-19 04:00] VITALS: BP 123/84
[2016-12-19] MEDS: Vancomycin 750mg/D5W 275ml IVPB SCH ×2 (04:00)
[2016-12-19] MEDS: ACYCLOVIR IV SCH ×3 (06:00→23:43)
[2016-12-19] MEDS: D5W IV SCH ×3 (06:00→23:43)
[2016-12-19] MEDS ORDERED: Vancomycin 1250mg in D5W 275ml IVPB SCH (06:00)
[2016-12-19 08:00] VITALS: BP 129/92
[2016-12-19] MEDS: Morphine Sulfate 2mg/ml Inj IVP PRN ×2 (08:49→21:46)
[2016-12-19] MEDS: Isentress 400mg tab ORAL SCH ×2 (08:57→21:40)
[2016-12-19] MEDS: Emitricitabine/Tenofovir 200/300mg tab ORAL SCH (08:57)
[2016-12-19] MEDS: Heparin 5000 units/ml inj SUBQ SCH ×2 (09:02→21:48)
[2016-12-19] MEDS: Vancomycin 1250mg in D5W 275ml IVPB SCH ×2 (09:46→22:42)
[2016-12-19 12:00] VITALS: BP 132/91
--- NOTE | 2016-12-19 13:48 | Infectious Diseases Prog Note ---
Assessment/Plan Assessment/Plan A: The patient is a 61-year-old male w ALOC Brain MRI : no mass or meningeal enhancement possibly due to drug overdose no evidence of Meningitis Possible pneumonia HIV (unknown what is his HIV status ) Transaminitis COPD. Asthma . PLAN: cont patient on intravenous acyclovir, Rocephin, vancomycin,ampicillin. Raltegravir and Truvada on droplet isolation. HIV VL CD4 count CrytpAg and Coccidio serology. Monitor cultures(blood, sputum, and urine) Monitor chest x-ray Subjective Constitutional: Denies: anorexia, chills, drenching sweats, fatigue, fever, no symptoms, other Allergies: Coded Allergies: CODEINE (Verified Allergy, Mild, Altered Mental Status, 03/04/13) Objective Vital Signs Last 24 Hour Vital Signs Date Time Temp Pulse Resp B/P Pulse Ox O2 Delivery O2 Flow Rate FiO2 12/19/16 12:00 98.2 116 20 132/91 100 Room Air 12/19/16 08:00 97.7 100 20 129/92 98 Room Air 12/19/16 07:30 Nasal Cannula 2.0 28 12/19/16 07:29 96 Nasal Cannula 2.0 28 12/19/16 07:29 100 18 Nasal Cannula 2.0 28 12/19/16 04:00 97.9 99 20 123/84 97 Room Air 12/19/16 00:00 97.9 105 20 142/88 97 Room Air 12/18/16 22:49 98 Nasal Cannula 2.0 28 12/18/16 22:49 Nasal Cannula 2.0 28 12/18/16 22:35 99 18 100 Nasal Cannula 2.0 28 12/18/16 22:30 98 18 100 Nasal Cannula 2.0 28 12/18/16 22:30 98 18 Nasal Cannula 2.0 28 12/18/16 19:57 98.3 103 20 126/79 97 Room Air 12/18/16 16:00 98.7 107 18 123/85 94 Room Air Height (Feet): 5 Height (Inches): 11.00 Weight (Pounds): 180 HEENT: atraumatic Respiratory/Chest: lungs clear, normal breath sounds Cardiovascular: normal rate, regular rhythm Abdomen: soft, non tender, no organomegaly Microbiology Date/Time Source Procedure Growth Status 12/17/16 12:45 Blood Not Otherwise Specified Blood Culture - Preliminary NO GROWTH AFTER 24 HOURS Resulted 12/17/16 12:35 Blood Blood Culture - Preliminary NO GROWTH AFTER 24 HOURS Resulted 12/16/16 18:30 Blood Blood Culture - Preliminary NO GROWTH AFTER 48 HOURS Resulted 12/16/16 18:15 Blood Blood Culture - Preliminary NO GROWTH AFTER 48 HOURS Resulted 12/17/16 06:30 Sputum Gram Stain - Final Complete 12/17/16 06:30 Sputum Sputum Culture - Final NORMAL UPPER RESPIRATORY PORFIRIO PRESENT Complete Laboratory Tests Test 12/19/16 03:30 Vancomycin Level Trough 8.7 ug/mL (5.0-12.0) Current Medications Medications (Trade) Dose Ordered Sig/Abena Route PRN Reason Start Time Stop Time Status Last Admin Dose Admin Acetaminophen (Tylenol) 650 mg Q4H PRN ORAL fever 12/16/16 22:00 01/15/17 21:59 12/17/16 00:37 Acyclovir 750 mg/ Dextrose 275 ml @ 275 mls/hr EVERY 8 HOURS IV 12/18/16 22:00 01/17/17 21:59 12/19/16 06:00 Al Hydroxide/Mg Hydroxide (Mylanta II) 30 ml Q6H PRN ORAL dyspepsia 12/16/16 22:00 01/15/17 21:59 Albuterol/ Ipratropium (DuoNeb 0.5-3(2.5)mg/3ml) 3 ml Q4H PRN HHN Shortness of Breath 12/16/16 22:00 12/21/16 21:59 12/18/16 22:44 Ampicillin/Sodium Chloride (Ampicillin/ Sodium Chloride) 55 ml @ 110 mls/hr Q4HR IV 12/19/16 17:00 12/26/16 16:59 Ceftriaxone Sodium 2 gm/ Dextrose 110 ml @ 220 mls/hr Q12H IVPB 12/17/16 14:00 12/24/16 13:59 12/19/16 02:00 Emtricitabine/ Tenofovir (Truvada) 1 tab DAILY ORAL 12/18/16 18:00 01/17/17 17:59 12/19/16 08:57 Fluconazole/ Sodium Chloride 200 ml @ 200 mls/hr Q24H IV 12/17/16 15:00 12/24/16 14:59 12/18/16 14:21 Fluconazole/ Sodium Chloride (Diflucan 400mg/ 200ml Premix) 200 ml @ 200 mls/hr Q24H IV 12/17/16 16:00 12/24/16 15:59 12/18/16 16:37 Heparin Sodium (Porcine) (Heparin 5000 units/ml) 5,000 units EVERY 12 HOURS SUBQ 12/17/16 09:00 01/16/17 08:59 12/19/16 09:02 Morphine Sulfate 2 mg 2 mg Q4H PRN IVP PAIN 4-10 12/17/16 16:45 12/24/16 16:44 12/19/16 08:49 Nitroglycerin 0.4 mg 0.4 mg Q5M PRN SL Prn Chest Pain 12/16/16 22:00 01/15/17 21:59 Ondansetron HCl (Zofran) 4 mg Q6H PRN IVP Nausea & Vomiting 12/16/16 22:00 01/15/17 21:59 Polyethylene Glycol (Miralax) 17 gm DAILYPRN PRN ORAL Constipation 12/16/16 22:00 01/15/17 21:59 Quetiapine Fumarate (SEROquel) 25 mg DAILY ORAL 12/17/16 09:00 01/16/17 08:59 12/19/16 08:57 Raltegravir (Isentress) 400 mg EVERY 12 HOURS ORAL 12/17/16 18:00 01/16/17 17:59 12/19/16 08:57 Temazepam (Restoril) 15 mg HSPRN PRN ORAL Insomnia 12/16/16 22:00 12/23/16 21:59 12/18/16 00:42 Vancomycin HCl (Vanco rx to dose) 1 ea DAILY PRN MISC PER RX PROTOCOL 12/17/16 14:45 01/16/17 14:44 Vancomycin HCl 1.25 gm/Dextrose 275 ml @ 183.708 mls/hr Q12HR IVPB 12/19/16 09:00 12/24/16 08:59 12/19/16 09:46 SHAMEKA CAMPOS M.D. Dec 19, 2016 13:48
[2016-12-19 16:00] VITALS: BP 151/89
[2016-12-19] MEDS: NS IV SCH ×2 (16:52→21:33)
[2016-12-19 20:00] VITALS: BP 149/94
--- NOTE | 2016-12-19 21:50 | Pulmonology Progress Note ---
Assessment/Plan Problems: (1) RLL pneumonia (2) Acute exacerbation of chronic obstructive airways disease (3) Acute encephalopathy (4) HIV (human immunodeficiency virus infection) (5) Back pain Assessment/Plan mental status has improved much continue antibiotics pain control check cultures supplement electrolytes. check clutres Subjective ROS Limited/Unobtainable: No Constitutional: Reports: no symptoms Respiratory: Reports: no symptoms Cardiovascular: Reports: no symptoms Allergies: Coded Allergies: CODEINE (Verified Allergy, Mild, Altered Mental Status, 03/04/13) Objective Last 24 Hour Vital Signs Date Time Temp Pulse Resp B/P Pulse Ox O2 Delivery O2 Flow Rate FiO2 12/19/16 20:00 98.8 104 20 149/94 98 Room Air 12/19/16 19:42 Nasal Cannula 2.0 12/19/16 19:42 112 18 Nasal Cannula 2.0 12/19/16 19:42 97 Nasal Cannula 2.0 12/19/16 16:00 97.9 117 20 151/89 96 Room Air 12/19/16 12:00 98.2 116 20 132/91 100 Room Air 12/19/16 08:00 97.7 100 20 129/92 98 Room Air 12/19/16 07:30 Nasal Cannula 2.0 12/19/16 07:29 96 Nasal Cannula 2.0 12/19/16 07:29 100 18 Nasal Cannula 2.0 12/19/16 04:00 97.9 99 20 123/84 97 Room Air 12/19/16 00:00 97.9 105 20 142/88 97 Room Air 12/18/16 22:49 98 Nasal Cannula 2.0 12/18/16 22:49 Nasal Cannula 2.0 12/18/16 22:35 99 18 100 Nasal Cannula 2.0 12/18/16 22:30 98 18 100 Nasal Cannula 2.0 12/18/16 22:30 98 18 Nasal Cannula 2.0 28 Intake and Output 12/18/16 12/19/16 19:00 07:00 Intake Total 460 ml 1620 ml Output Total 1200 ml 3600 ml Balance -740 ml -1980 ml Intake Oral 240 ml 850 ml IV Total 220 ml 770 ml Output Urine Total 1200 ml 3600 ml # Voids 1 # Bowel Movements 2 General Appearance: WD/WN HEENT: normocephalic Respiratory/Chest: chest wall non-tender, lungs clear Cardiovascular: normal peripheral pulses, regular rhythm Abdomen: normal bowel sounds, soft, non tender Extremities: no cyanosis Skin: no rash Neurologic/Psychiatric: no motor/sensory deficits Microbiology Date/Time Source Procedure Growth Status 12/17/16 12:45 Blood Not Otherwise Specified Blood Culture - Preliminary NO GROWTH AFTER 24 HOURS Resulted 12/17/16 12:35 Blood Blood Culture - Preliminary NO GROWTH AFTER 24 HOURS Resulted 12/17/16 06:30 Sputum Gram Stain - Final Complete 12/17/16 06:30 Sputum Sputum Culture - Final NORMAL UPPER RESPIRATORY PORFIRIO PRESENT Complete Laboratory Tests 12/19/16 03:30: Vancomycin Level Trough 8.7 Current Medications Medications (Trade) Dose Ordered Sig/Abena Route PRN Reason Start Time Stop Time Status Last Admin Dose Admin Acetaminophen (Tylenol) 650 mg Q4H PRN ORAL fever 12/16/16 22:00 01/15/17 21:59 12/17/16 00:37 Acyclovir 750 mg/ Dextrose 275 ml @ 275 mls/hr EVERY 8 HOURS IV 12/18/16 22:00 01/17/17 21:59 12/19/16 14:30 Al Hydroxide/Mg Hydroxide (Mylanta II) 30 ml Q6H PRN ORAL dyspepsia 12/16/16 22:00 01/15/17 21:59 Albuterol/ Ipratropium (DuoNeb 0.5-3(2.5)mg/3ml) 3 ml Q4H PRN HHN Shortness of Breath 12/16/16 22:00 12/21/16 21:59 12/18/16 22:44 Ampicillin/Sodium Chloride (Ampicillin/ Sodium Chloride) 55 ml @ 110 mls/hr Q4HR IV 12/19/16 17:00 12/26/16 16:59 12/19/16 21:33 Ceftriaxone Sodium 2 gm/ Dextrose 110 ml @ 220 mls/hr Q12H IVPB 12/17/16 14:00 12/24/16 13:59 12/19/16 13:59 Emtricitabine/ Tenofovir (Truvada) 1 tab DAILY ORAL 12/18/16 18:00 01/17/17 17:59 12/19/16 08:57 Fluconazole/ Sodium Chloride 200 ml @ 200 mls/hr Q24H IV 12/17/16 15:00 12/24/16 14:59 12/19/16 15:06 Fluconazole/ Sodium Chloride (Diflucan 400mg/ 200ml Premix) 200 ml @ 200 mls/hr Q24H IV 12/17/16 16:00 12/24/16 15:59 12/19/16 16:52 Heparin Sodium (Porcine) (Heparin 5000 units/ml) 5,000 units EVERY 12 HOURS SUBQ 12/17/16 09:00 01/16/17 08:59 12/19/16 09:02 Morphine Sulfate 2 mg 2 mg Q4H PRN IVP PAIN 4-10 12/17/16 16:45 12/24/16 16:44 12/19/16 08:49 Nitroglycerin 0.4 mg 0.4 mg Q5M PRN SL Prn Chest Pain 12/16/16 22:00 01/15/17 21:59 Ondansetron HCl (Zofran) 4 mg Q6H PRN IVP Nausea & Vomiting 12/16/16 22:00 01/15/17 21:59 Polyethylene Glycol (Miralax) 17 gm DAILYPRN PRN ORAL Constipation 12/16/16 22:00 01/15/17 21:59 Quetiapine Fumarate (SEROquel) 25 mg DAILY ORAL 12/17/16 09:00 01/16/17 08:59 12/19/16 08:57 Raltegravir (Isentress) 400 mg EVERY 12 HOURS ORAL 12/17/16 18:00 01/16/17 17:59 12/19/16 21:40 Temazepam (Restoril) 15 mg HSPRN PRN ORAL Insomnia 12/16/16 22:00 12/23/16 21:59 12/18/16 00:42 Vancomycin HCl (Vanco rx to dose) 1 ea DAILY PRN MISC PER RX PROTOCOL 12/17/16 14:45 01/16/17 14:44 Vancomycin HCl 1.25 gm/Dextrose 275 ml @ 183.708 mls/hr Q12HR IVPB 12/19/16 09:00 12/24/16 08:59 12/19/16 09:46 OLAYINKA TREVINO Dec 19, 2016 21:49
[2016-12-20] VITALS: BP 152/102
[2016-12-20] MEDS: Morphine Sulfate 2mg/ml Inj IVP PRN ×2 (02:18→06:03)
[2016-12-20] MEDS: AMPICILLIN IV SCH ×5 (02:20→17:00)
[2016-12-20] MEDS: NS IV SCH ×5 (02:20→17:00)
[2016-12-20] MEDS: cefTRIAXone 2gm/D5W 110ml IVPB SCH ×4 (03:19→13:03)
[2016-12-20 04:00] VITALS: BP 130/86
[2016-12-20] MEDS: ACYCLOVIR IV SCH ×2 (06:04→13:46)
[2016-12-20] MEDS: D5W IV SCH ×2 (06:04→13:46)
[2016-12-20] MEDS: Isentress 400mg tab ORAL SCH ×2 (08:53→20:35)
[2016-12-20] MEDS: Emitricitabine/Tenofovir 200/300mg tab ORAL SCH (08:54)
[2016-12-20] MEDS: Heparin 5000 units/ml inj SUBQ SCH ×2 (08:55→20:38)
[2016-12-20] MEDS: Vancomycin 1250mg in D5W 275ml IVPB SCH (09:23)
[2016-12-20 12:00] VITALS: BP 129/73
[2016-12-20 16:09] VITALS: BP 110/66
--- NOTE | 2016-12-20 18:26 | Infectious Diseases Prog Note ---
Assessment/Plan Assessment/Plan A: The patient is a 61-year-old male w ALOC improved Brain MRI : no mass or meningeal enhancement possibly due to drug overdose no evidence of Meningitis Possible pneumonia HIV (unknown what is his HIV status ) Transaminitis COPD. Asthma . PLAN: DC acyclovir, Rocephin, vancomycin,ampicillin. and monitor pt off of AB Rx Raltegravir and Truvada DC droplet isolation. HIV VL CD4 count CrytpAg and Coccidio serology. Monitor cultures(blood, sputum, and urine) Monitor chest x-ray Subjective Constitutional: Denies: anorexia, chills, drenching sweats, fatigue, fever, no symptoms, other Allergies: Coded Allergies: CODEINE (Verified Allergy, Mild, Altered Mental Status, 03/04/13) Objective Vital Signs Last 24 Hour Vital Signs Date Time Temp Pulse Resp B/P Pulse Ox O2 Delivery O2 Flow Rate FiO2 12/20/16 16:09 98.1 115 22 110/66 96 Nasal Cannula 2.0 12/20/16 12:00 98.4 116 18 129/73 95 Nasal Cannula 2.0 12/20/16 04:00 98.2 97 18 130/86 92 Room Air 12/20/16 00:00 98.8 101 19 152/102 95 Room Air 12/19/16 20:00 98.8 104 20 149/94 98 Room Air 12/19/16 19:42 Nasal Cannula 2.0 28 12/19/16 19:42 112 18 Nasal Cannula 2.0 28 12/19/16 19:42 97 Nasal Cannula 2.0 28 Height (Feet): 5 Height (Inches): 11.00 Weight (Pounds): 180 HEENT: atraumatic Respiratory/Chest: no respiratory distress Cardiovascular: regularly irregular Abdomen: non distended Current Medications Medications (Trade) Dose Ordered Sig/Abena Route PRN Reason Start Time Stop Time Status Last Admin Dose Admin Acetaminophen (Tylenol) 650 mg Q4H PRN ORAL fever 12/16/16 22:00 01/15/17 21:59 12/17/16 00:37 Acyclovir 750 mg/ Dextrose 275 ml @ 275 mls/hr EVERY 8 HOURS IV 12/18/16 22:00 01/17/17 21:59 12/20/16 13:46 Al Hydroxide/Mg Hydroxide (Mylanta II) 30 ml Q6H PRN ORAL dyspepsia 12/16/16 22:00 01/15/17 21:59 Albuterol/ Ipratropium (DuoNeb 0.5-3(2.5)mg/3ml) 3 ml Q4H PRN HHN Shortness of Breath 12/16/16 22:00 12/21/16 21:59 12/18/16 22:44 Ampicillin/Sodium Chloride (Ampicillin/ Sodium Chloride) 55 ml @ 110 mls/hr Q4HR IV 12/19/16 17:00 12/26/16 16:59 12/20/16 12:26 Ceftriaxone Sodium 2 gm/ Dextrose 110 ml @ 220 mls/hr Q12H IVPB 12/17/16 14:00 12/24/16 13:59 12/20/16 13:03 Emtricitabine/ Tenofovir (Truvada) 1 tab DAILY ORAL 12/18/16 18:00 01/17/17 17:59 12/20/16 08:54 Fluconazole/ Sodium Chloride 200 ml @ 200 mls/hr Q24H IV 12/17/16 15:00 12/24/16 14:59 12/20/16 15:05 Fluconazole/ Sodium Chloride (Diflucan 400mg/ 200ml Premix) 200 ml @ 200 mls/hr Q24H IV 12/17/16 16:00 12/24/16 15:59 12/19/16 16:52 Heparin Sodium (Porcine) (Heparin 5000 units/ml) 5,000 units EVERY 12 HOURS SUBQ 12/17/16 09:00 01/16/17 08:59 12/20/16 08:55 Morphine Sulfate 2 mg 2 mg Q4H PRN IVP PAIN 4-10 12/17/16 16:45 12/24/16 16:44 12/20/16 06:03 Nitroglycerin 0.4 mg 0.4 mg Q5M PRN SL Prn Chest Pain 12/16/16 22:00 01/15/17 21:59 Ondansetron HCl (Zofran) 4 mg Q6H PRN IVP Nausea & Vomiting 12/16/16 22:00 01/15/17 21:59 Polyethylene Glycol (Miralax) 17 gm DAILYPRN PRN ORAL Constipation 12/16/16 22:00 01/15/17 21:59 Quetiapine Fumarate (SEROquel) 25 mg DAILY ORAL 12/17/16 09:00 01/16/17 08:59 12/20/16 08:52 Raltegravir (Isentress) 400 mg EVERY 12 HOURS ORAL 12/17/16 18:00 01/16/17 17:59 12/20/16 08:53 Temazepam (Restoril) 15 mg HSPRN PRN ORAL Insomnia 12/16/16 22:00 12/23/16 21:59 12/19/16 23:57 Vancomycin HCl (Vanco rx to dose) 1 ea DAILY PRN MISC PER RX PROTOCOL 12/17/16 14:45 01/16/17 14:44 Vancomycin HCl 1.25 gm/Dextrose 275 ml @ 183.708 mls/hr Q12HR IVPB 12/19/16 09:00 12/24/16 08:59 12/20/16 09:23 SHAMEKA CAMPOS M.D. Dec 20, 2016 18:26
--- NOTE | 2016-12-20 19:05 | Cardiology Report ---
APPROVED REPORT EKG Measurement Heart [id number] HI [id number] Sinus tachycardia Otherwise normal ECG
[2016-12-20 19:50] VITALS: BP 142/96
[2016-12-20 19:52] VITALS: BP 114/70
[2016-12-20] MEDS: Morphine Sulfate 2mg/ml Inj IM PRN (22:10)
--- NOTE | 2016-12-20 23:32 | Pulmonology Progress Note ---
Assessment/Plan Problems: (1) RLL pneumonia (2) Acute exacerbation of chronic obstructive airways disease (3) Acute encephalopathy (4) HIV (human immunodeficiency virus infection) (5) Back pain Assessment/Plan mental status has improved much all antibiotics dc/ed pain control check cultures supplement electrolytes. check clutres dc home in am if remains asymptomatic Subjective ROS Limited/Unobtainable: No Interval Events: waking up, no new complains Allergies: Coded Allergies: CODEINE (Verified Allergy, Mild, Altered Mental Status, 03/04/13) Objective Last 24 Hour Vital Signs Date Time Temp Pulse Resp B/P Pulse Ox O2 Delivery O2 Flow Rate FiO2 12/20/16 19:52 98.7 111 23 114/70 98 Nasal Cannula 2.0 12/20/16 19:49 Room Air 12/20/16 19:49 96 Room Air 12/20/16 19:48 115 18 Room Air 12/20/16 16:09 98.1 115 22 110/66 96 Nasal Cannula 2.0 12/20/16 12:00 98.4 116 18 129/73 95 Nasal Cannula 2.0 12/20/16 04:00 98.2 97 18 130/86 92 Room Air 12/20/16 00:00 98.8 101 19 152/102 95 Room Air Intake and Output 12/19/16 12/20/16 19:00 07:00 Intake Total 1225.0 ml 1340 ml Output Total 1300 ml Balance 1225.0 ml 40 ml Intake Oral 240 ml IV Total 1225.0 ml 1100 ml Output Urine Total 1300 ml # Voids 5 # Bowel Movements 1 2 General Appearance: WD/WN HEENT: normocephalic Respiratory/Chest: chest wall non-tender, lungs clear Cardiovascular: normal peripheral pulses, normal rate Abdomen: normal bowel sounds, soft, non tender Extremities: no cyanosis 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/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 II-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 grossly normal Current Medications Medications (Trade) Dose Ordered Sig/Abena Route PRN Reason Start Time Stop Time Status Last Admin Dose Admin Acetaminophen (Tylenol) 650 mg Q4H PRN ORAL fever 12/16/16 22:00 01/15/17 21:59 12/17/16 00:37 Al Hydroxide/Mg Hydroxide (Mylanta II) 30 ml Q6H PRN ORAL dyspepsia 12/16/16 22:00 01/15/17 21:59 Albuterol/ Ipratropium (DuoNeb 0.5-3(2.5)mg/3ml) 3 ml Q4H PRN HHN Shortness of Breath 12/16/16 22:00 12/21/16 21:59 12/18/16 22:44 Emtricitabine/ Tenofovir (Truvada) 1 tab DAILY ORAL 12/18/16 18:00 01/17/17 17:59 12/20/16 08:54 Heparin Sodium (Porcine) (Heparin 5000 units/ml) 5,000 units EVERY 12 HOURS SUBQ 12/17/16 09:00 01/16/17 08:59 12/20/16 20:38 Morphine Sulfate (Morphine Sulfate) 2 mg Q4H PRN IM PAIN 4-10 12/20/16 22:00 12/27/16 21:59 12/20/16 22:10 Nitroglycerin (Ntg) 0.4 mg Q5M PRN SL Prn Chest Pain 12/16/16 22:00 01/15/17 21:59 Ondansetron HCl (Zofran) 4 mg Q6H PRN IVP Nausea & Vomiting 12/16/16 22:00 01/15/17 21:59 Polyethylene Glycol (Miralax) 17 gm DAILYPRN PRN ORAL Constipation 12/16/16 22:00 01/15/17 21:59 Quetiapine Fumarate (SEROquel) 25 mg DAILY ORAL 12/17/16 09:00 01/16/17 08:59 12/20/16 08:52 Raltegravir (Isentress) 400 mg EVERY 12 HOURS ORAL 12/17/16 18:00 01/16/17 17:59 12/20/16 20:35 Temazepam (Restoril) 15 mg HSPRN PRN ORAL Insomnia 12/16/16 22:00 12/23/16 21:59 12/19/16 23:57 OLAYINKA TREVINO Dec 20, 2016 23:32
[2016-12-21] VITALS: BP 139/84
[2016-12-21 04:00] VITALS: BP 128/73
[2016-12-21 08:00] VITALS: BP 145/61
[2016-12-21] MEDS: Isentress 400mg tab ORAL SCH (08:47)
[2016-12-21] MEDS: Emitricitabine/Tenofovir 200/300mg tab ORAL SCH (08:47)
[2016-12-21] MEDS: Morphine Sulfate 2mg/ml Inj IM PRN (08:47)
[2016-12-21] MEDS: Heparin 5000 units/ml inj SUBQ SCH (08:48)
--- NOTE | 2016-12-21 09:49 | Infectious Diseases Prog Note ---
Assessment/Plan Assessment/Plan A: The patient is a 61-year-old male w ALOC improved Brain MRI : no mass or meningeal enhancement possibly due to drug overdose no evidence of Meningitis Possible pneumonia , SP Rx HIV (unknown what is his HIV status ) Transaminitis improving COPD. Asthma . PLAN: and monitor pt off of AB Rx ( SP DC acyclovir, Rocephin, vancomycin,ampicillin. ) Raltegravir and Truvada Hepatitis Serology HIV VL CD4 count CrytpAg and Coccidio serology. Monitor cultures(blood ) Monitor chest x-ray :P Subjective Constitutional: Denies: anorexia, chills, drenching sweats, fatigue, fever, no symptoms, other Allergies: Coded Allergies: CODEINE (Verified Allergy, Mild, Altered Mental Status, 03/04/13) Objective Vital Signs Last 24 Hour Vital Signs Date Time Temp Pulse Resp B/P Pulse Ox O2 Delivery O2 Flow Rate FiO2 12/21/16 09:17 98.1 12/21/16 08:22 95 18 Room Air 12/21/16 08:21 Room Air 12/21/16 08:21 95 Room Air 12/21/16 08:00 97.7 98 18 145/61 95 12/21/16 04:00 98.1 94 18 128/73 95 12/21/16 00:00 98.2 98 19 139/84 94 Room Air 12/20/16 19:52 98.7 111 23 114/70 98 Nasal Cannula 2.0 12/20/16 19:49 Room Air 12/20/16 19:49 96 Room Air 12/20/16 19:48 115 18 Room Air 12/20/16 16:09 98.1 115 22 110/66 96 Nasal Cannula 2.0 12/20/16 12:00 98.4 116 18 129/73 95 Nasal Cannula 2.0 Height (Feet): 5 Height (Inches): 11.00 Weight (Pounds): 180 HEENT: anicteric Respiratory/Chest: normal breath sounds Cardiovascular: regularly irregular Abdomen: non distended Current Medications Medications (Trade) Dose Ordered Sig/Abena Route PRN Reason Start Time Stop Time Status Last Admin Dose Admin Acetaminophen (Tylenol) 650 mg Q4H PRN ORAL fever 12/16/16 22:00 01/15/17 21:59 12/17/16 00:37 Al Hydroxide/Mg Hydroxide (Mylanta II) 30 ml Q6H PRN ORAL dyspepsia 12/16/16 22:00 01/15/17 21:59 Albuterol/ Ipratropium (DuoNeb 0.5-3(2.5)mg/3ml) 3 ml Q4H PRN HHN Shortness of Breath 12/16/16 22:00 12/21/16 21:59 12/18/16 22:44 Emtricitabine/ Tenofovir (Truvada) 1 tab DAILY ORAL 12/18/16 18:00 01/17/17 17:59 12/21/16 08:47 Heparin Sodium (Porcine) (Heparin 5000 units/ml) 5,000 units EVERY 12 HOURS SUBQ 12/17/16 09:00 01/16/17 08:59 12/20/16 20:38 Morphine Sulfate (Morphine Sulfate) 2 mg Q4H PRN IM PAIN 4-10 12/20/16 22:00 12/27/16 21:59 12/21/16 08:47 Nitroglycerin (Ntg) 0.4 mg Q5M PRN SL Prn Chest Pain 12/16/16 22:00 01/15/17 21:59 Ondansetron HCl (Zofran) 4 mg Q6H PRN IVP Nausea & Vomiting 12/16/16 22:00 01/15/17 21:59 Polyethylene Glycol (Miralax) 17 gm DAILYPRN PRN ORAL Constipation 12/16/16 22:00 01/15/17 21:59 Quetiapine Fumarate (SEROquel) 25 mg DAILY ORAL 12/17/16 09:00 01/16/17 08:59 12/21/16 08:46 Raltegravir (Isentress) 400 mg EVERY 12 HOURS ORAL 12/17/16 18:00 01/16/17 17:59 12/21/16 08:47 Temazepam (Restoril) 15 mg HSPRN PRN ORAL Insomnia 12/16/16 22:00 12/23/16 21:59 12/19/16 23:57 SHAMEKA CAMPOS M.D. Dec 21, 2016 09:49
[2016-12-21 12:00] VITALS: BP 116/61
[2016-12-21] MEDS ORDERED: NS 275ml ONE (14:52)
--- NOTE | 2016-12-22 09:27 | Diagnostic Imaging Report ---
Indication: ASTHMA Technique: One view of the chest Comparison: 12/16/2016 Findings: Interim marked improvement of previously demonstrated bilateral moderate parenchymal disease, with some residual reticular infiltrate at the right lung base. The pleural spaces are clear. Heart size is normal. There is thoracic scoliotic deformity Impression: Improved parenchymal disease, with some persistent disease at the right lung base, over 5 days
--- NOTE | 2016-12-22 20:55 | Discharge Summary ---
Discharge Summary Hospital Course Date of Admission Dec 16, 2016 at 20:01 Date of Discharge Dec 21, 2016 at 14:53 Admitting Diagnosis sepsis/pneumonia HPI Elmo Padilla is a 61 year old male who was admitted on Dec 16, 2016 at 20: 01 for Sepsis, Pneumonia Hospital Course [id number] Discharge Discharge Disposition Patient was discharged to Home (01) Discharge Diagnoses: Nadya Patel NP Dec 22, 2016 20:55
[2016-12-23 08:56] LABS: COCCIDIODES AB-CF/SERUM Negative (Neg:<1:2); CRYPTOCOCCAL ANTIGEN SERUM Negative (Negative); HEPATITIS C QUANT HCV Not Detected IU/mL (.); HIV RNA PCR QUANT <20 copies/mL (.)
--- NOTE | 2016-12-23 09:08 | Discharge Summary 2 SIG ---
DATE OF ADMISSION: 12/16/2016 DATE OF DISCHARGE: 12/21/2016 BRIEF HOSPITAL COURSE: The patient is a 61-year-old male with history of human immunodeficiency virus, chronic back pain, presented to emergency department, brought by a friend due to altered mental status and low back pain. The patient reports having cough that is nonproductive and has history of chronic obstructive pulmonary disease. The pain on the lumbar area radiates down to the right side. He has history of HIV. Urine toxicology was positive for amphetamine, benzodiazepines, opiates, and marijuana. He was started on IV antibiotics. Dr. Zhang was consulted and was started intravenously on acyclovir, Rocephin, vancomycin, and ampicillin. He was initially placed on droplet isolation and was given Truvada and Raltegravir. Blood culture did not isolate any growth. Sputum culture showed normal upper respiratory miriam. Brain MRI showed no mass or meningeal enhancement. Altered loss of consciousness improved. He was taken off droplet isolation and off antibiotics. Transaminitis was improving. The patient was discharged home. FINAL DIAGNOSES: 1. Acute toxic-metabolic encephalopathy. 2. Acute exacerbation of chronic obstructive pulmonary disease. 3. Right lower lobe pneumonia. 4. Human immunodeficiency virus. 5. Back pain. 6. Elevated liver transaminases improving. Michelle Zhong M.D. I have been assigned to dictate discharge summary on this account and I was not involved in the patient's management. Nadya Patel N.P. DR: CRISTA JOB#: [id number] CC:
== END 2016-12-21 14:53 | disposition home or self-care (01) | DRG 892 ==
LOC: EMR 19:36 → 2W 20:01 → EDBEDREQ 22:48 → 2W 12-17 00:39 → 4W 12-17 14:45
DX: J18.9 Pneumonia, unspecified organism (principal); B20 Human immunodeficiency virus [HIV] disease; G92 Toxic encephalopathy; J44.1 Chronic obstructive pulmonary disease with (acute) exacerbation; F19.10 Other psychoactive substance abuse, uncomplicated; Z88.6 Allergy status to analgesic agent; M54.5 Low back pain
CPT/HCPCS: 36415; 36600; 70553; 71010; 80053; 80069; 80202; 80300; 81003; 82164; 82550; 82553; 82803; 83605; 83735; 83880; 84100; 84484; 85007; 85025; 86360; 86635; 86705; 86709; 86803; 87040; 87070; 87205; 87340; 87449; 87522; 87536; 93005; 94640; 94664; 94760; A9585; J7620

== ENCOUNTER 2017-04-06 18:46 | Emergency (ER) | payer MEDICAID ==
[~2017-04-06] VITALS: Ht 180.3 cm; Wt 79.4 kg
[2017-04-06 18:58] VITALS: BP 143/93
[2017-04-06] MEDS ORDERED: PredniSONE 20mg tab ORAL ONE (19:15)
[2017-04-06] MEDS: Ipratropium 0.02% Inh Soln 2.5ml UD HHN SCH ×2 (19:30→19:52)
[2017-04-06] MEDS: Albuterol ud Inhalation HHN SCH ×2 (19:30→19:52)
[2017-04-06] MEDS ORDERED: PREDNISONE20 MG ORAL (20:09)
[2017-04-06] MEDS ORDERED: AMOXICILLIN500 MG ORAL (20:09)
[2017-04-06 20:20] VITALS: BP 147/86
--- NOTE | 2017-04-07 18:13 | Emergency Room Report ---
History of Present Illness General Chief Complaint: Dyspnea/Respdistress Source: Patient Present Illness HPI 61-year-old male presents ED complaining of shortness of breath x2 days. Notes history of COPD. States he's been wheezing and his nebulizer machine is not helping. Denies fevers or chills. Notes cough which is dry. Denies chest pain. Denies sick contacts recent travel. No other aggravating relieving factors. Denies any other associated symptom Allergies: Coded Allergies: CODEINE (Verified Allergy, Mild, Altered Mental Status, 03/04/13) Patient History Past Medical History: asthma, COPD Past Surgical History: none Pertinent Family History: none Social History: Denies: alcohol use, drug use, smoking Immunizations: UTD Reviewed Nursing Documentation: PMH: Agreed, PSxH: Agreed Nursing Documentation-PMH Hx Cardiac Problems: No Hx Asthma: Yes Hx COPD: Yes Hx Cancer: No Hx Gastrointestinal Problems: No Hx Neurological Problems: No Review of Systems All Other Systems: negative except mentioned in HPI Physical Exam Vital Signs Date Time Temp Pulse Resp B/P Pulse Ox O2 Delivery O2 Flow Rate FiO2 04/06/17 18:54 98.4 110 22 143/93 95 Room Air Sp02 EP Interpretation: reviewed, normal General Appearance: no apparent distress, alert, GCS 15, non-toxic Head: normocephalic Eyes: bilateral eye PERRL, bilateral eye normal inspection ENT: normal ENT inspection Neck: normal inspection Respiratory: wheezing Cardiovascular #1: regular rate, rhythm, no edema Gastrointestinal: normal inspection Rectal: deferred Genitourinary: no CVA tenderness Musculoskeletal: normal inspection Neurologic: alert, oriented x3, responsive, motor strength/tone normal, sensory intact, speech normal Psychiatric: normal inspection Skin: normal inspection Lymphatic: normal inspection Medical Decision Making Diagnostic Impression: Primary Impression: COPD exacerbation ER Course Hospital Course 61-year-old male presents to ED complaining of cough, wheezing Differential diagnoses include: URI, bronchitis, asthma/COPD, pneumonia Clinical course Patient placed on stretcher. After initial history and physical I ordered prednisone and nebulizer treatment. Upon reassessment patient states cough and symptoms have improved. Given history of COPD we will treat with antibiotics Diagnosis - COPD exacerbation Stable and discharged home with prescriptions for Rx prednisone, amoxicillin. Instructed to followup with PMD. Return to ED if symptoms recur or worsen Last Vital Signs Date Time Temp Pulse Resp B/P Pulse Ox O2 Delivery O2 Flow Rate FiO2 04/06/17 20:20 98.4 104 24 147/86 100 Room Air Status: improved Disposition: HOME, SELF-CARE Condition: Stable Scripts Prednisone* (PREDNISONE*) 20 Mg Tablet 40 MG ORAL DAILY, #10 TAB Prov: MILLIE CUELLO M.D. 04/06/17 Amoxicillin* (AMOXIL*) 500 Mg Capsule 500 MG ORAL THREE TIMES A DAY, #21 CAP Prov: MILLIE CUELLO M.D. 04/06/17 Referrals: [facility] (PCP) Patient Instructions: Chronic Obstructive Pulmonary Disease Exacerbation MILLIE CUELLO M.D. April 07, 2017 18:13
== END 2017-04-06 20:20 | disposition home or self-care (01) ==
LOC: EMR 19:20
DX: J44.1 Chronic obstructive pulmonary disease with (acute) exacerbation (principal); Z88.6 Allergy status to analgesic agent
CPT/HCPCS: 94640; 99284

== ENCOUNTER 2017-05-07 04:24 | Emergency (ER) | payer MEDICAID ==
[~2017-05-07] VITALS: Ht 180.3 cm; Wt 79.4 kg
[~2017-05-07 04:24] MED LIST changes: +AMOXICILLIN500 MG ORAL
[2017-05-07] MEDS ORDERED: Ketorolac 30mg Inj IV ONE (04:45)
--- NOTE | 2017-05-07 04:46 | Emergency Room Report ---
History of Present Illness General Chief Complaint: Abdominal Pain Source: Patient, Medical Record Present Illness HPI Is a 61-year-old male with a history of COPD. He presents with chief complaint abdominal pain and distention. Onset was about 3-4 hours ago. Woke up with this. Said that he felt gassy and bloated. No fever or chills. Pain is 10 out of 10. Diffuse in nature. He drove here. [place] nauseous but no vomiting. No diarrhea. No fever. Allergies: Coded Allergies: CODEINE (Verified Allergy, Mild, Altered Mental Status, 03/04/13) Patient History Past Medical History: see triage record, old chart reviewed, COPD Past Surgical History: none Pertinent Family History: none Social History: Reports: alcohol use - Drinks 2-3 glasses of wine a day, Denies : smoking - Last month Immunizations: other Reviewed Nursing Documentation: PMH: Agreed, PSxH: Agreed Nursing Documentation-PMH Hx Cardiac Problems: No - HIV+ Hx Asthma: Yes Hx COPD: Yes Hx Cancer: No Hx Gastrointestinal Problems: No Hx Neurological Problems: No Review of Systems Eye: Denies: blurred vision, eye pain ENT: Denies: ear pain, nose congestion, throat swelling Respiratory: Denies: cough, shortness of breath Cardiovascular: Denies: chest pain, palpitations Gastrointestinal: Reports: abdominal pain, nausea, Denies: diarrhea, vomiting Musculoskeletal: Denies: back pain, joint pain Skin: Denies: rash Neurological: Denies: headache, numbness Endocrine: Denies: increased thirst, increased urine Hematologic/Lymphatic: Denies: easy bruising All Other Systems: negative except mentioned in HPI Physical Exam Vital Signs Date Time Temp Pulse Resp B/P Pulse Ox O2 Delivery O2 Flow Rate FiO2 05/07/17 04:27 97.3 97 16 143/89 97 Room Air vitals normal Sp02 EP Interpretation: reviewed, normal General Appearance: well appearing, no apparent distress, alert Head: normocephalic, atraumatic Eyes: bilateral eye EOMI, bilateral eye PERRL ENT: hearing grossly normal, normal pharynx Neck: full range of motion, supple, no meningismus Respiratory: chest non-tender, lungs clear, normal breath sounds Cardiovascular #1: regular rate, rhythm, no murmur Gastrointestinal: no mass, no organomegaly, no bruit, tenderness - Diffuse, other - Hyperactive bowel sounds. Abdomen is protuberant, not tense, overweight Musculoskeletal: back normal, gait/station normal, normal range of motion Psychiatric: mood/affect normal Skin: warm/dry Medical Decision Making Diagnostic Impression: Primary Impression: Abdominal pain of unknown etiology ER Course Present with abdominal pain. No evidence of obstruction. No evidence of appendicitis or acute abdomen. his lipase is slightly elevated but there is no evidence of pancreatitis. He felt better now. We'll discharge home. Lab Results Impression labs unremarkable CT/MRI/US Diagnostic Results CT/MRI/US Diagnostic Results : Imaging Test Ordered: CT abdomen and pelvis Impression read by radiologist. Nonspecific ileus. No obstruction. Appendix normal. Last Vital Signs Date Time Temp Pulse Resp B/P Pulse Ox O2 Delivery O2 Flow Rate FiO2 05/07/17 04:27 97.3 97 16 143/89 97 Room Air Status: improved Disposition: HOME, SELF-CARE Condition: Stable Scripts Dicyclomine Hcl* (BENTYL*) 10 Mg Capsule 10 MG ORAL FOUR TIMES A DAY, #30 CAP Prov: FELA LOMELI M.D. 05/07/17 Referrals: [facility] (PCP) Patient Instructions: Abdominal Pain, Adult Additional Instructions: Followup with your DrSanford in 2 to 3 days. Return if symptom worsen. FELA LOMELI M.D. May 07, 2017 04:46
[2017-05-07] MEDS ORDERED: Tubing IV Cassette IV ONE (04:48)
[2017-05-07 05:05] LABS: EOSINOPHILS % (AUTO) 1.2 % (0.0-3.0); LYMPHOCYTES % (AUTO) 43.8 % (20.0-45.0); MEAN CORPUSCULAR HEMOGLOBIN 34.8 PG (27.0-31.0); MEAN CORPUSCULAR HGB CONC 35.6 G/DL (32.0-36.0); MEAN CORPUSCULAR VOLUME 98 FL (80-99); MEAN PLATELET VOLUME 6.6 FL (6.5-10.1); NEUTROPHILS % (AUTO) 45.1 % (45.0-75.0); PLATELET COUNT 182 K/UL (150-450); RED BLOOD COUNT 4.58 M/UL (4.70-6.10); RED CELL DISTRIBUTION WIDTH 13.5 % (11.6-14.8); WHITE BLOOD COUNT 9.7 K/UL (4.8-10.8)
[2017-05-07 05:20] LABS: ALANINE AMINOTRANSFERASE 46 U/L (3-41); ALBUMIN/GLOBULIN RATIO 1.1 (1.0-2.7); ANION GAP 13 (5-15); ASPARTATE AMINO TRANSFERASE 31 U/L (5-40); CALCIUM 8.8 mg/dL (8.6-10.2); CARBON DIOXIDE 31 mEQ/L (20-30); CHLORIDE 100 mEQ/L (98-107); CREATININE 1.3 mg/dL (0.7-1.2); GLOMERULAR FILTRATION RATE > 60 mL/min (>60); HEMOLYSIS 8; LIPASE 162 U/L (< 60); POTASSIUM 4.1 mEQ/L (3.4-4.9); SODIUM 144 mEQ/L (135-145); TOTAL PROTEIN 6.8 g/dL (6.6-8.7)
[2017-05-07] MEDS ORDERED: HYDROmorphone 1mg/ml Carpuject IVP ONE (05:30)
[2017-05-07 05:35] LABS: APPEARANCE,URINE CLEAR; KETONES,URINE NEGATIVE (NEGATIVE); NITRITE,URINE NEGATIVE (NEGATIVE); PH,URINE 8 (4.5-8.0); PROTEIN,URINE NEGATIVE (NEGATIVE); UROBILINOGEN,URINE NORMAL MG/DL (0.0-1.0)
[2017-05-07 05:42] LABS: LEUKOCYTE ESTERASE ,URINE NEGATIVE (NEGATIVE)
[2017-05-07 05:57] VITALS: BP 155/96
[2017-05-07] MEDS ORDERED: BENTYL10 MG ORAL (06:32)
[2017-05-07 06:40] VITALS: BP 155/96
--- NOTE | 2017-05-07 08:49 | Diagnostic Imaging Report ---
Indication: Abdominal pain Technique: CT scan of the abdomen and pelvis utilizing automated exposure control without intravenous or oral contrast. Axial, sagittal and coronal images were obtained. CT dose: Total DLP 1223 mGycm; CTDI vol 24.1 mGy Comparison: Abdominal ultrasound 11/09/11 Findings: Evaluation of the solid organs is limited without intravenous contrast material. Visualized lung bases are clear. There is a tiny hiatal hernia. There is a 1.5 cm hypodensity within segment 5 of the liver series 3 image 44 not adequately characterized. There is slightly lobular contour of the liver. There is a 1.0 cm left adrenal nodule. A small hypodense probable cyst is seen in the right kidney. There is no hydronephrosis. No renal or ureteral calculi are seen. The spleen and pancreas are grossly unremarkable. Gallbladder is contracted without CT evident gallstones. A fat-containing paraumbilical hernia is seen. There is no mechanical small bowel obstruction. The appendix is normal. There is no free intraperitoneal fluid or air. Bladder is grossly unremarkable. Degenerative changes of the spine are seen. There is levoscoliosis of the lumbar spine. Bilateral femoral head avascular necrosis is present. There is a small fat-containing right inguinal hernia. Impression: Nondilated fluid-filled small bowel may suggest mild nonspecific ileus or enteritis. No obstruction. Normal appendix. Slightly lobulated appearance of the liver may suggest underlying hepatocellular disease. Clinical correlation recommended. Approximately 1.5 cm hypodensity within segment 5 of the liver not adequately characterized. Further evaluation recommended as indicated. Small right renal hypodensities probably representing cysts. Atherosclerotic changes. Levoscoliosis of the lumbar spine. Avascular necrosis of the bilateral femoral heads. Other findings as above. The CT scanner at [facility] is accredited by the [employer] and the scans are performed using protocols designed to limit radiation exposure to as low as reasonably achievable to attain images of sufficient resolution adequate for diagnostic evaluation.
== END 2017-05-07 06:42 | disposition home or self-care (01) ==
LOC: EMR 04:39
DX: R10.9 Unspecified abdominal pain (principal); R19.12 Hyperactive bowel sounds; K42.9 Umbilical hernia without obstruction or gangrene; K40.90 Unilateral inguinal hernia, without obstruction or gangrene, not specified as recurrent; J44.9 Chronic obstructive pulmonary disease, unspecified; J45.909 Unspecified asthma, uncomplicated; M41.86 Other forms of scoliosis, lumbar region; Z88.6 Allergy status to analgesic agent
CPT/HCPCS: 36415; 74176; 80053; 80300; 81003; 83690; 85025; 96360; 96374; 96375; 99284; J1170; J1885; J2405

== ENCOUNTER 2017-05-16 08:25 | Emergency (ER) | payer MEDICAID ==
[~2017-05-16] VITALS: Ht 180.3 cm; Wt 79.4 kg
[~2017-05-16 08:25] MED LIST changes: +BENTYL10 MG ORAL
[2017-05-16] MEDS ORDERED: Hydromorphone 0.5mg/0.5ml inj IVP ONE (08:45)
--- NOTE | 2017-05-16 08:53 | Emergency Room Report ---
History of Present Illness General Chief Complaint: Abdominal Pain Source: Patient Present Illness HPI Patient presents with abdominal pain. He's been having this problem for approximately 2 months. It got worse last night. He states pain is pressure and feels like gas cramps. Denies any vomiting or diarrhea. He moved his bowels last night and normal. He denies dysuria. He also denies fevers. Pain 8/10. Diffuse, but more in lower abdomen. Not radiating. He was given Bentyl and states this did not help. In the past it was evaluated with a CT scan here. He states he usually gets a shot of Dilaudid and is able to go home. The patient has a history of HIV and states he's stable on his antiviral medications. He states his CD4 count is high and his viral load is low. The patient denies any chest pain, palpitations, dizziness, skin rashes, hematochezia, dysuria, extremity pain. This is the CT result from 05/07: Impression: Nondilated fluid-filled small bowel may suggest mild nonspecific ileus or enteritis. No obstruction. Normal appendix. Slightly lobulated appearance of the liver may suggest underlying hepatocellular disease. Clinical correlation recommended. Approximately 1.5 cm hypodensity within segment 5 of the liver not adequately characterized. Further evaluation recommended as indicated. Small right renal hypodensities probably representing cysts. Atherosclerotic changes. Levoscoliosis of the lumbar spine. Avascular necrosis of the bilateral femoral heads. Allergies: Coded Allergies: CODEINE (Verified Allergy, Mild, Altered Mental Status, 03/04/13) Patient History Past Medical History: see triage record Social History: Denies: smoking Social History Narrative At home Reviewed Nursing Documentation: PMH: Agreed, PSxH: Agreed Nursing Documentation-PMH Hx Cardiac Problems: No - HIV+ Hx Asthma: Yes Hx COPD: Yes Hx Cancer: No Hx Gastrointestinal Problems: No Hx Neurological Problems: No Review of Systems All Other Systems: negative except mentioned in HPI Physical Exam Vital Signs Date Time Temp Pulse Resp B/P Pulse Ox O2 Delivery O2 Flow Rate FiO2 05/16/17 08:28 97.7 93 15 125/84 95 Room Air Sp02 EP Interpretation: reviewed, normal General Appearance: well appearing, no apparent distress, GCS 15 Head: normocephalic Eyes: bilateral eye normal inspection ENT: moist mucus membranes Neck: supple Respiratory: lungs clear, normal breath sounds Cardiovascular #1: regular rate, rhythm Cardiovascular #2: 2+ radial (R) Gastrointestinal: normal inspection, normal bowel sounds, no mass, non- distended, distended, tenderness - mid abdomen Musculoskeletal: back normal, gait/station normal, normal range of motion Neurologic: alert, oriented x3, grossly normal Psychiatric: mood/affect normal Skin: normal inspection, warm/dry Medical Decision Making Diagnostic Impression: Primary Impression: Abdominal pain Qualified Codes: R10.84 - Generalized abdominal pain ER Course Patient presents with abdominal pain for several months. Similar to when had CT 05/07. Requesting shot of dilaudid. DDx: diverticulitis, UTI, appendicitis, gastroenteritis, HIV related GI infection, IBS, pain medicine seeking amongst others. Lack of vomiting and diarrhea against gastroenteritis or infectious etiology. Evaluation with labs, and abd films. Treatment with IV hydration and analgesia. Labs significant for normal WBC and H/H. Lytes with min elevation of glucose. Xrays no sig finding. Patient improved with treatment. Patient stable for outpatient observation and treatment. Laboratory Tests Test 05/16/17 08:30 White Blood Count 5.9 K/UL (4.8-10.8) Red Blood Count 4.64 M/UL (4.70-6.10) L Hemoglobin 15.8 G/DL (14.2-18.0) Hematocrit 47.1 % (42.0-52.0) Mean Corpuscular Volume 101 FL (80-99) H Mean Corpuscular Hemoglobin 34.1 PG (27.0-31.0) H Mean Corpuscular Hemoglobin Concent 33.6 G/DL (32.0-36.0) Red Cell Distribution Width 13.0 % (11.6-14.8) Platelet Count 186 K/UL (150-450) Mean Platelet Volume 8.1 FL (6.5-10.1) Neutrophils (%) (Auto) 47.2 % (45.0-75.0) Lymphocytes (%) (Auto) 41.8 % (20.0-45.0) Monocytes (%) (Auto) 8.2 % (1.0-10.0) Eosinophils (%) (Auto) 1.2 % (0.0-3.0) Basophils (%) (Auto) 1.7 % (0.0-2.0) Prothrombin Time 11.1 SEC (9.30-11.50) Prothrombin Time INR 1.1 (0.9-1.1) PTT 25 SEC (23-33) Urine Color Pale yellow Urine Appearance Clear Urine pH 7 (4.5-8.0) Urine Specific [place] 1.005 (1.005-1.035) Urine Protein Negative (NEGATIVE) Urine Glucose (UA) Negative (NEGATIVE) Urine Ketones Negative (NEGATIVE) Urine Occult Blood Negative (NEGATIVE) Urine Nitrite Negative (NEGATIVE) Urine Bilirubin Negative (NEGATIVE) Urine Urobilinogen Normal MG/DL (0.0-1.0) Urine Leukocyte Esterase 1+ (NEGATIVE) H Urine RBC 0-2 /HPF (0 - 0) H Urine WBC 2-4 /HPF (0 - 0) Urine Squamous Epithelial Cells Occasional /LPF Urine Bacteria Occasional /HPF (NONE) Sodium Level 142 mEQ/L (135-145) Potassium Level 4.5 mEQ/L (3.4-4.9) Chloride Level 102 mEQ/L (98-107) Carbon Dioxide Level 28 mEQ/L (20-30) Anion Gap 12 (5-15) Blood Urea Nitrogen 3 mg/dL (7-23) L Creatinine 1.0 mg/dL (0.7-1.2) Estimate Glomerular Filtration Rate > 60 mL/min (>60) Glucose Level 125 mg/dL (74-106) H Calcium Level 8.9 mg/dL (8.6-10.2) Total Bilirubin 0.3 mg/dL (0.0-1.2) Aspartate Amino Transferase (AST) 24 U/L (5-40) Alanine Aminotransferase (ALT) 17 U/L (3-41) Alkaline Phosphatase 109 U/L (40-129) Troponin I < 0.30 ng/mL (<=0.30) Total Protein 6.7 g/dL (6.6-8.7) Albumin 3.6 g/dL (3.5-5.2) Globulin 3.1 g/dL Albumin/Globulin Ratio 1.1 (1.0-2.7) Lipase 62 U/L (< 60) H Urine Opiates Screen Negative (NEGATIVE) Urine Barbiturates Screen Negative (NEGATIVE) Phencyclidine (PCP) Screen Negative (NEGATIVE) Urine Amphetamines Screen Negative (NEGATIVE) Urine Benzodiazepines Screen Negative (NEGATIVE) Urine Cocaine Screen Negative (NEGATIVE) Urine Marijuana (THC) Screen Negative (NEGATIVE) EKG Diagnostic Results Rate: normal Rhythm: NSR ST Segments: no acute changes Rhythm Strip Diag. Results EP Interpretation: yes Rhythm: NSR, no PVC's, no ectopy Other X-Ray Diagnostic Results # of Views/Limited Vs Complete: 1 View EP Interpretation: Yes Interpretation: other - NSBGP, scoleosis with DJD, no SBO or masses. Indication: Pain Impression: No acute disease Interpreting ER Provider: janae Last Vital Signs Date Time Temp Pulse Resp B/P Pulse Ox O2 Delivery O2 Flow Rate FiO2 05/16/17 13:13 97 17 141/99 99 Room Air 05/16/17 11:56 97.7 Status: improved Disposition: HOME, SELF-CARE Condition: Improved Scripts Tramadol Hcl* (ULTRAM*) 50 Mg Tablet 50 MG ORAL Q6H Y for For Pain, #10 TAB 0 Refills Prov: Ferny Meza M.D. 05/16/17 Phenobarb/Hyoscy/Atropine/Scop ( Tablet) 16.2 Mg Tablet 1 TAB ORAL THREE TIMES A DAY Y for bloating/abdominal cramps, #15 TAB 0 Refills Prov: Ferny Meza M.D. 05/16/17 Ferny Meza M.D. May 16, 2017 08:53
[2017-05-16 09:16] VITALS: BP 125/84
[2017-05-16 09:26] LABS: APPEARANCE,URINE CLEAR; KETONES,URINE NEGATIVE (NEGATIVE); LEUKOCYTE ESTERASE ,URINE 1+ (NEGATIVE); NITRITE,URINE NEGATIVE (NEGATIVE); PH,URINE 7 (4.5-8.0); PROTEIN,URINE NEGATIVE (NEGATIVE); UROBILINOGEN,URINE NORMAL MG/DL (0.0-1.0)
[2017-05-16 09:32] LABS: INR 1.1 (0.9-1.1); PROTHROMBIN TIME 11.1 SEC (9.30-11.50)
[2017-05-16 09:34] LABS: BASOPHILS % (AUTO) 1.7 % (0.0-2.0); EOSINOPHILS % (AUTO) 1.2 % (0.0-3.0); LYMPHOCYTES % (AUTO) 41.8 % (20.0-45.0); MEAN CORPUSCULAR HEMOGLOBIN 34.1 PG (27.0-31.0); MEAN CORPUSCULAR HGB CONC 33.6 G/DL (32.0-36.0); MEAN CORPUSCULAR VOLUME 101 FL (80-99); MEAN PLATELET VOLUME 8.1 FL (6.5-10.1); MONOCYTES % (AUTO) 8.2 % (1.0-10.0); NEUTROPHILS % (AUTO) 47.2 % (45.0-75.0); PLATELET COUNT 186 K/UL (150-450); RED BLOOD COUNT 4.64 M/UL (4.70-6.10); WHITE BLOOD COUNT 5.9 K/UL (4.8-10.8)
[2017-05-16 09:41] LABS: BACTERIA,URINE OCCASIONAL /HPF; RBC,URINE 0-2 /HPF (0 - 0); SQUAMOUS EPITHELIAL CELL,UR OCCASIONAL /LPF (NONE/OCC)
[2017-05-16 09:42] LABS: TROPONIN I < 0.30 ng/mL (<=0.30)
[2017-05-16 09:44] LABS: ALANINE AMINOTRANSFERASE 17 U/L (3-41); ALBUMIN/GLOBULIN RATIO 1.1 (1.0-2.7); ANION GAP 12 (5-15); ASPARTATE AMINO TRANSFERASE 24 U/L (5-40); CALCIUM 8.9 mg/dL (8.6-10.2); CARBON DIOXIDE 28 mEQ/L (20-30); CHLORIDE 102 mEQ/L (98-107); GLOMERULAR FILTRATION RATE > 60 mL/min (>60); HEMOLYSIS 63; LIPASE 62 U/L (< 60); POTASSIUM 4.5 mEQ/L (3.4-4.9); SODIUM 142 mEQ/L (135-145); TOTAL PROTEIN 6.7 g/dL (6.6-8.7)
--- NOTE | 2017-05-16 11:05 | Diagnostic Imaging Report ---
Indication: Abdominal pain Technique: Supine view of the abdomen Comparison: [facility] Weigher image from CT scan of 05/07/2017 Findings: Unremarkable bowel gas pattern. There is thoracolumbar scoliosis with secondary degenerative change. No significant change from the previous study except for decreased fecal burden Impression: No acute process
[2017-05-16 11:56] VITALS: BP 136/80
[2017-05-16] MEDS ORDERED: DONNATAL TAB1 TAB ORAL (13:08)
[2017-05-16] MEDS ORDERED: TRAMADOL HCL50 MG ORAL (13:08)
[2017-05-16 13:13] VITALS: BP 141/99
== END 2017-05-16 13:21 | disposition home or self-care (01) ==
LOC: EMR 08:51
DX: R10.9 Unspecified abdominal pain (principal); J44.9 Chronic obstructive pulmonary disease, unspecified; Z88.6 Allergy status to analgesic agent
CPT/HCPCS: 36415; 74000; 80053; 80300; 81003; 83690; 84484; 85025; 85610; 85730; 93005; 96374; 96375; 99284; J1170; J2405

== ENCOUNTER 2017-08-22 13:21 | Emergency (ER) | payer MEDICAID ==
[~2017-08-22] VITALS: Ht 180.3 cm; Wt 81.6 kg
[~2017-08-22 13:21] MED LIST changes: +DONNATAL TAB1 TAB ORAL; +TRAMADOL HCL50 MG ORAL
[2017-08-22 13:34] VITALS: BP 154/97
[2017-08-22] MEDS ORDERED: Ipratropium 0.02% Inh Soln 2.5ml UD HHN ONE (13:45)
[2017-08-22] MEDS: Albuterol ud Inhalation HHN SCH ×3 (13:47→14:10)
[2017-08-22 14:20] LABS: BASOPHILS % (AUTO) 1.4 % (0.0-2.0); LYMPHOCYTES % (AUTO) 30.5 % (20.0-45.0); MEAN CORPUSCULAR HEMOGLOBIN 33.7 PG (27.0-31.0); MEAN CORPUSCULAR HGB CONC 33.2 G/DL (32.0-36.0); MEAN CORPUSCULAR VOLUME 101 FL (80-99); MEAN PLATELET VOLUME 7.1 FL (6.5-10.1); MONOCYTES % (AUTO) 7.8 % (1.0-10.0); NEUTROPHILS % (AUTO) 59.3 % (45.0-75.0); PLATELET COUNT 205 K/UL (150-450); RED CELL DISTRIBUTION WIDTH 12.5 % (11.6-14.8); WHITE BLOOD COUNT 8.8 K/UL (4.8-10.8)
[2017-08-22 14:30] LABS: INR 1.1 (0.9-1.1); PROTHROMBIN TIME 11.3 SEC (9.30-11.50)
[2017-08-22 14:37] LABS: TROPONIN I < 0.30 ng/mL (<=0.30)
--- NOTE | 2017-08-22 14:39 | Diagnostic Imaging Report ---
Indication: Dyspnea Comparison: 12/21/16 A single view chest radiograph was obtained. Findings: There is moderate scoliosis of the thoracic spine convex to the right. The heart is normal in size. There is attenuation of the left midlung field due to soft tissues in a similar fashion noted previously as well. Bones are slightly osteopenic. Impression: No acute disease
[2017-08-22 14:40] LABS: ALANINE AMINOTRANSFERASE 78 U/L (3-41); ALBUMIN/GLOBULIN RATIO 1.2 (1.0-2.7); ANION GAP 11 (5-15); ASPARTATE AMINO TRANSFERASE 47 U/L (5-40); CALCIUM 8.5 mg/dL (8.6-10.2); CARBON DIOXIDE 30 mEQ/L (20-30); CHLORIDE 100 mEQ/L (98-107); CREATININE 1.2 mg/dL (0.7-1.2); GLOMERULAR FILTRATION RATE > 60 mL/min (>60); HEMOLYSIS 1; POTASSIUM 3.7 mEQ/L (3.4-4.9); SODIUM 141 mEQ/L (135-145); TOTAL PROTEIN 6.6 g/dL (6.6-8.7)
[2017-08-22 14:45] LABS: APPEARANCE,URINE CLEAR; KETONES,URINE NEGATIVE (NEGATIVE); LEUKOCYTE ESTERASE ,URINE 1+ (NEGATIVE); NITRITE,URINE NEGATIVE (NEGATIVE); PH,URINE 7 (4.5-8.0); PROTEIN,URINE NEGATIVE (NEGATIVE); UROBILINOGEN,URINE NORMAL MG/DL (0.0-1.0)
[2017-08-22 14:56] LABS: BACTERIA,URINE OCCASIONAL /HPF; SQUAMOUS EPITHELIAL CELL,UR OCCASIONAL /LPF (NONE/OCC)
[2017-08-22 15:10] VITALS: BP 147/90
--- NOTE | 2017-08-22 15:40 | Emergency Room Report ---
History of Present Illness General Chief Complaint: Dyspnea/Respdistress Source: Patient Present Illness HPI Patient with dyspnea for several days. Denies fever or productive cough. Has COPD and nebulizer at home which he feels is not working well for him. Not on prednisone. Feels he needs a few breathing treatments and might be able to go home. Not worst attack. No URI sy. No chest pain. Some anxiety. Never intubated. No dysuria, but + hematospermia - denies trauma or prostate pain or problems. No change in bowels. Having problems with loosing weight. +HIV with neg viral load on treatment. Several months of not smoking and having somewhat hard time, but doing well. Last visit with MD noted BP was slightly elevated, but decision not to treat. Concerned about BP here. Never meds. (Noted BP elevated 2016 here.) H/O scoliosis which is some of basis of COPD problem. Allergies: Coded Allergies: CODEINE (Verified Allergy, Mild, Altered Mental Status, 03/04/13) Patient History Past Medical History: see triage record Social History: Reports: smoking - prior Social History Narrative at home Reviewed Nursing Documentation: PMH: Agreed, PSxH: Agreed Nursing Documentation-PMH Past Medical History: No History, Except For Hx Asthma: Yes Hx COPD: Yes Hx Cancer: No Hx Gastrointestinal Problems: No Hx Neurological Problems: No Review of Systems All Other Systems: negative except mentioned in HPI Physical Exam Vital Signs Date Time Temp Pulse Resp B/P (MAP) Pulse Ox O2 Delivery O2 Flow Rate FiO2 08/22/17 13:24 97.7 97 28 162/109 98 Room Air 08/22/17 13:40 21 Sp02 EP Interpretation: reviewed, normal General Appearance: well appearing, no apparent distress, GCS 15 Head: normocephalic, atraumatic Eyes: bilateral eye normal inspection, bilateral eye PERRL ENT: moist mucus membranes Neck: supple Respiratory: wheezing, expiration, inspiration Cardiovascular #1: regular rate, rhythm Cardiovascular #2: 2+ radial (R) Gastrointestinal: normal inspection, normal bowel sounds, non tender, no mass, non-distended, overweight Musculoskeletal: gait/station normal, normal range of motion, other - scoliosis Neurologic: alert, oriented x3, grossly normal Psychiatric: anxious Skin: normal inspection, warm/dry Medical Decision Making Diagnostic Impression: Primary Impression: COPD exacerbation Additional Impressions: Scoliosis Qualified Codes: M41.05 - Infantile idiopathic scoliosis, thoracolumbar region Labile hypertension ER Course Patient presents with dyspnea with h/o COPD. Ddx: pneumonia, COPD, bronchitis, AMI, CHF. Emergent evaluation with EKG, CXR and labs. He does not want IV. Will try to improve with PO and HHN meds. He is fairly tight and might need admission. EKG no injury. CXR scoliosis, COPD - resolution of RLL infiltrates last visit. Labs with normal WBC. Improved with treatment and wants to go home. Discussed starting HTN meds. He is adverse to this and wants to work on lifestyle changes and discuss with PMD. Patient stable for outpatient observation and treatment. (Suggested f/u with urologist also.) Laboratory Tests Test 08/22/17 13:40 08/22/17 14:37 White Blood Count 8.8 K/UL (4.8-10.8) Red Blood Count 5.00 M/UL (4.70-6.10) Hemoglobin 16.9 G/DL (14.2-18.0) Hematocrit 50.7 % (42.0-52.0) Mean Corpuscular Volume 101 FL (80-99) H Mean Corpuscular Hemoglobin 33.7 PG (27.0-31.0) H Mean Corpuscular Hemoglobin Concent 33.2 G/DL (32.0-36.0) Red Cell Distribution Width 12.5 % (11.6-14.8) Platelet Count 205 K/UL (150-450) Mean Platelet Volume 7.1 FL (6.5-10.1) Neutrophils (%) (Auto) 59.3 % (45.0-75.0) Lymphocytes (%) (Auto) 30.5 % (20.0-45.0) Monocytes (%) (Auto) 7.8 % (1.0-10.0) Eosinophils (%) (Auto) 1.0 % (0.0-3.0) Basophils (%) (Auto) 1.4 % (0.0-2.0) Prothrombin Time 11.3 SEC (9.30-11.50) Prothrombin Time INR 1.1 (0.9-1.1) PTT 25 SEC (23-33) Sodium Level 141 mEQ/L (135-145) Potassium Level 3.7 mEQ/L (3.4-4.9) Chloride Level 100 mEQ/L (98-107) Carbon Dioxide Level 30 mEQ/L (20-30) Anion Gap 11 (5-15) Blood Urea Nitrogen 9 mg/dL (7-23) Creatinine 1.2 mg/dL (0.7-1.2) Estimate Glomerular Filtration Rate > 60 mL/min (>60) Glucose Level 103 mg/dL (74-106) Calcium Level 8.5 mg/dL (8.6-10.2) L Total Bilirubin 0.3 mg/dL (0.0-1.2) Aspartate Amino Transferase (AST) 47 U/L (5-40) H Alanine Aminotransferase (ALT) 78 U/L (3-41) H Alkaline Phosphatase 107 U/L (40-129) Total Creatine Kinase 314 U/L (38-174) H Troponin I < 0.30 ng/mL (<=0.30) Pro-B-Type Natriuretic Peptide 177 pg/mL (0-125) H Total Protein 6.6 g/dL (6.6-8.7) Albumin 3.7 g/dL (3.5-5.2) Globulin 2.9 g/dL Albumin/Globulin Ratio 1.2 (1.0-2.7) Urine Color Pale yellow Urine Appearance Clear Urine pH 7 (4.5-8.0) Urine Specific [place] 1.010 (1.005-1.035) Urine Protein Negative (NEGATIVE) Urine Glucose (UA) Negative (NEGATIVE) Urine Ketones Negative (NEGATIVE) Urine Occult Blood 1+ (NEGATIVE) H Urine Nitrite Negative (NEGATIVE) Urine Bilirubin Negative (NEGATIVE) Urine Urobilinogen Normal MG/DL (0.0-1.0) Urine Leukocyte Esterase 1+ (NEGATIVE) H Urine RBC 2-4 /HPF (0 - 0) H Urine WBC 2-4 /HPF (0 - 0) Urine Squamous Epithelial Cells Occasional /LPF Urine Bacteria Occasional /HPF (NONE) EKG Diagnostic Results Rate: normal Rhythm: NSR ST Segments: no acute changes Rhythm Strip Diag. Results EP Interpretation: yes Rhythm: NSR, no PVC's, no ectopy Chest X-Ray Diagnostic Results Chest X-Ray Diagnostic Results : Chest X-Ray Ordered: Yes # of Views/Limited/Complete: 1 View Indication: Shortness of Breath EP Interpretation: Yes Interpretation: no consolidation, no effusion, no pneumothorax, other - COPD Impression: Other Electronically Signed by: Ferny Meza MD Last Vital Signs Date Time Temp Pulse Resp B/P (MAP) Pulse Ox O2 Delivery O2 Flow Rate FiO2 08/22/17 15:47 112 2 168/97 97 Room Air 08/22/17 15:10 98.6 08/22/17 14:31 21 Status: improved Disposition: HOME, SELF-CARE Condition: Improved Scripts Prednisone* (PREDNISONE*) 20 Mg Tablet 40 MG ORAL DAILY, #10 TAB Prov: Ferny Meza M.D. 08/22/17 Referrals: [facility]ERR[facility] (PCP) Ferny Meza M.D. Aug 22, 2017 15:40
[2017-08-22] MEDS ORDERED: PREDNISONE20 MG ORAL (15:41)
[2017-08-22 15:47] VITALS: BP 168/97
--- NOTE | 2017-08-23 18:02 | Cardiology Report ---
APPROVED REPORT EKG Measurement Heart [id number] Normal sinus rhythm Normal ECG
== END 2017-08-22 15:47 | disposition home or self-care (01) ==
LOC: EMR 13:52
DX: J44.1 Chronic obstructive pulmonary disease with (acute) exacerbation (principal); M41.84 Other forms of scoliosis, thoracic region; Z88.6 Allergy status to analgesic agent; Z87.891 Personal history of nicotine dependence
CPT/HCPCS: 36415; 71010; 80053; 81003; 82550; 83880; 84484; 85025; 85610; 85730; 93005; 94640; 94664; 99284

== ENCOUNTER 2017-09-04 20:20 | Emergency (ER) | payer MEDICAID ==
[~2017-09-04] VITALS: Ht 180.3 cm; Wt 81.6 kg
[2017-09-04 20:13] VITALS: BP 149/87
[2017-09-04] MEDS ORDERED: Albuterol ud Inhalation HHN ONE (20:30)
--- NOTE | 2017-09-04 20:34 | Emergency Room Report ---
History of Present Illness General Chief Complaint: Dyspnea/Respdistress Source: Patient Present Illness HPI [id number] BIBEMS with SOB Known asthma. +HIV Intermittent smoker No recent URI Denies fever/chills, cough, chest pain On daily advair, albuterol as needed - been using 3x a day Labs/ECG/CXR on 08/22 were normal Allergies: Coded Allergies: CODEINE (Verified Allergy, Unknown, 09/04/17) Patient History Past Medical History: asthma, HIV Past Surgical History: none Pertinent Family History: none Social History: Reports: smoking Immunizations: UTD Reviewed Nursing Documentation: PMH: Agreed, PSxH: Agreed Nursing Documentation-PMH Hx Cardiac Problems: No - HIV + Hx Asthma: Yes Hx COPD: Yes Review of Systems All Other Systems: negative except mentioned in HPI Physical Exam Vital Signs Date Time Temp Pulse Resp B/P (MAP) Pulse Ox O2 Delivery O2 Flow Rate FiO2 09/04/17 20:06 98.2 114 17 149/87 96 Room Air Sp02 EP Interpretation: reviewed, normal General Appearance: normal inspection, well appearing, no apparent distress, alert, GCS 15, non-toxic Head: normocephalic, atraumatic Eyes: bilateral eye PERRL, bilateral eye EOMI ENT: normal ENT inspection, hearing grossly normal, normal voice Neck: normal inspection, full range of motion, supple, no bony tend Respiratory: normal inspection, lungs clear, normal breath sounds, no respiratory distress, no retraction, no accessory muscle use, speaking full sentences, wheezing Cardiovascular #1: regular rate, rhythm, no edema Gastrointestinal: normal inspection, normal bowel sounds, non tender, soft, no guarding, no hernia Genitourinary: no CVA tenderness Musculoskeletal: normal inspection, back normal, normal range of motion, Blake' s Sign negative Neurologic: normal inspection, alert, oriented x3, responsive, speech normal Psychiatric: normal inspection, judgement/insight normal, mood/affect normal Skin: normal inspection, normal color, no rash Medical Decision Making Diagnostic Impression: Primary Impression: Asthma exacerbation Qualified Codes: J45.41 - Moderate persistent asthma with (acute) exacerbation ER Course VSS. Afebrile. Not ill appearing Mild asthma exacerbation Gave 1 albuterol in ED - midl end exp wheeze only Vitals otherwise stable Afebrile Will start on higher dose advair given frequent use of albuterol Advised close PMD followup in 2-3 days DC home Last Vital Signs Date Time Temp Pulse Resp B/P (MAP) Pulse Ox O2 Delivery O2 Flow Rate FiO2 09/04/17 20:13 98.2 114 14 149/87 95 Room Air Status: improved Disposition: HOME, SELF-CARE Condition: Improved Patient Instructions: Asthma, Adult Additional Instructions: - Start on higher twice-daily dose of advair - Take prednisone each morning next 5 days - Follow up with your prim[facility] care doctor trade sales assistant in next 2-3 days to see if you need additional medications for asthma GERTRUDE KOVACS M.D. Sep 04, 2017 20:34
[2017-09-04] MEDS ORDERED: VENTOLIN HFA18 GM INH (20:36)
[2017-09-04] MEDS ORDERED: ADVAIR 100-501 EACH INH (20:36)
[2017-09-04] MEDS ORDERED: PREDNISONE20 MG ORAL (20:36)
[2017-09-04 20:50] VITALS: BP 150/99
== END 2017-09-04 20:50 | disposition home or self-care (01) ==
LOC: EDBD 20:20 → MERGE 20:40 → EMR 20:40
DX: J45.901 Unspecified asthma with (acute) exacerbation (principal); J44.9 Chronic obstructive pulmonary disease, unspecified; Z88.6 Allergy status to analgesic agent
CPT/HCPCS: 94640; 94664; 99283